=== PATIENT | female | born 1950 | race Caucasian/White ===

== ENCOUNTER 2019-12-28 11:19 | Outpatient (CLI) | payer MEDICARE, SELFPAY ==
--- NOTE | ~2019-12-28 | MR_ITS ---
EXAMINATION: MR brain/brain stem wo con DATE: 12/28/2019 15:17 INDICATION: Dementia TECHNIQUE: Magnetic resonance imaging (MRI) of the brain and brainstem was performed without intraven ous contrast. Sequences included sagittal and axial T1-weighted SE, axial diffusion-weighted FS SE, a xial T2*-weighted GRE, axial T2-weighted FLAIR, and axial T2-weighted FSE. Apparent diffusion coeffic ient (ADC) maps were created. COMPARISON: None. FINDINGS: There are no areas of restricted diffusion to suggest acute infarction. No intracranial hemorrhage or abnormal intracranial mass lesion. There are scattered areas of nonspecific increased T2-weighted si gnal intensity in the cerebral white matter, predominantly involving the deep and periventricular whi te matter. There are no intraparenchymal signal abnormalities seen on the other pulse sequences. Symm etric prominence of the sulci consistent with mild age-appropriate diffuse cerebral volume loss. The ventricles are symmetric and normal in size. There are no abnormal extra-axial fluid collections. Marcos w voids are seen in the cerebral arteries on the T2-weighted sequences consistent with their expected patency. Changes of left intraocular lens replacement. Mild mucosal thickening in the paranasal sinu ses with small mucous retention cyst at the inferior right maxillary sinus. IMPRESSION: 1. No acute intracranial process. 2. Age-related changes including mild diffuse volume loss and mild scattered periventricular predomin ant white matter T2 hyperintensity consistent with chronic small vessel ischemic disease. Reviewed, dictated and finalized at location A. IMPRESSION: 1. No acute intracranial process. 2. Age-related changes including mild diffuse volume loss and mild scattered pe riventricular predominant white matter T2 hyperintensity consistent with chroni c small vessel ischemic disease.
--- NOTE | 2019-12-28 12:00 | NEURO_ITS ---
TEST: ELECTROENCEPHALOGRAM DIAGNOSIS: DEMENTIA PATIENT NUMBER: [id number] EEG NUMBER: [id number] RECORDING DATE: 12/28/19 CLINICAL HISTORY: Patient reports that her family is telling her she is forgetting things all the time. CONDITION OF RECORDING: Awake, drowsy and sleep EEG DESCRIPTION: Basic resting occipital frequency consists of small amount of pooly organized low voltage 11-13hz alpha during brief periods of wakefulness mixed with low voltage beta. During drowsiness low voltage beta activity is seen diffusely mixed with waxing and waning posterior alpha rhythms. Bilateral symmetrical sleep activity is seen during sleep. Photic stimulation produced normal drive. Nonparoxysmal. Nonfocal. Nonlateralizing. IMPRESSION: Normal record MTDD
== END 2019-12-28 11:20 | disposition home or self-care (01) ==
PROVIDERS: Visit Provider Psychiatry & Neurology Neurology
DX: F03.90 Unspecified dementia, unspecified severity, without behavioral disturbance, psychotic disturbance, mood disturbance, and anxiety (principal); R93.0 Abnormal findings on diagnostic imaging of skull and head, not elsewhere classified
CPT/HCPCS: 70551; 95816

== ENCOUNTER 2020-02-07 03:08 | Outpatient (CLI) | payer MEDICARE, SELFPAY ==
[2020-02-07 17:56] LABS: SARS-CoV-2 RNA PCR Negative
== END 2020-02-07 03:09 | disposition home or self-care (01) ==
LOC: ANHCOVIDDT 03:09
PROVIDERS: PCP Internal Medicine; Visit Provider Internal Medicine Gastroenterology
DX: Z01.818 Encounter for other preprocedural examination (principal); Z11.59 Encounter for screening for other viral diseases
CPT/HCPCS: 87635; C9803; U0003

== ENCOUNTER 2020-02-09 02:19 | Day surgery (SDC) | payer MEDICARE, SELFPAY ==
[2020-02-03 14:37] VITALS: BMI 34.3
[2020-02-09 09:01] VITALS: BP 152/79; PULSE 58; RESP 18; TEMP 36; O2SAT 100
[2020-02-09 09:11] VITALS: BMI 34.2
[2020-02-09] MEDS: LACTATED RINGERS 1,000 ML 150 ML IV CONT (09:30)
[2020-02-09 09:31] LABS: Glucose Point of Care 166 (65-105)
--- NOTE | 2020-02-09 09:47 | WPDANESEPPF ---
Anes - Initial Pre Proc Eval Procedure: Operation Date: 02/09/20 09:30 Proposed Procedures p Esophagogastroduodenoscopy - Adam Cooney MD Date/Time: 02/09/20 09:47 Surgeon: Adam Cooney MD Pre Op Diagnosis: epigastric pain Patient Data Age: 69 Gender: F Height: 5 ft 3 in Weight: 87.5 kg Last Vital Signs Temp 96.8 F L 02/09/20 09:01 Pulse 58 L 02/09/20 09:01 Resp 18 02/09/20 09:01 BP 152/79 H 02/09/20 09:01 Pulse Ox 100 02/09/20 09:01 Allergies Allergy/AdvReac Type Severity Reaction Status Date / Time quinapril AdvReac Verified 02/03/20 14:33 Home Medications Medication Instructions Recorded Confirmed Type allopurinol 300 mg PO DAILY 02/03/20 02/03/20 History aspirin [Aspirin Low Dose] 81 mg PO DAILY 02/03/20 02/03/20 History atorvastatin 20 mg PO DAILY 02/03/20 02/03/20 History cholecalciferol (vitamin D3) 50 mcg PO DAILY 02/03/20 02/03/20 History donepezil 10 mg PO HS 02/03/20 02/09/20 History famotidine 40 mg PO DAILY 02/03/20 02/09/20 History levothyroxine 75 mcg PO DAILY 02/03/20 02/03/20 History lisinopril 10 mg PO DAILY 02/03/20 02/03/20 History metformin 500 mg PO BID 02/03/20 02/03/20 History omeprazole 40 mg PO DAILY 02/03/20 02/03/20 History vitamin B complex [B 1 tablet PO DAILY 02/03/20 02/03/20 History Complex-Vitamin B12] Laboratory Tests 02/09/20 09:28 POC Capillary Glucose 166 mg/dl H mg/dl (65-105) Patient hx anesthesia problems: none Family hx anesthesia problems: none PMFSH Past Medical History Medical History (Updated 02/09/20 @ 09:47 by Pete Pena MD) Dementia Diabetes GERD (gastroesophageal reflux disease) Hyperlipidemia Hypertension Hypothyroid Social History Social History Gender identity (if verbalized by the patient): Female Anes - Eval Final PreProcedure Day of Procedure 02/09/20 09:47 Patient weight: overweight Heart: regular rate and rhythm Lungs: clear to auscultation Airway: Mallampati scale class III Neurological: alert and oriented Last oral intake: >/= 8 hours ASA classification: III Emergent: no Anesthetic plan: proceed Anesthesia type and monitoring: general GIVS and standard monitoring Informed Consent: The patient's anesthetic plan and its attendant risks and benefits were discussed with the patient/family/POA. Questions were solicited and answers provided to the satisfaction of the patient/family/POA.
--- NOTE | 2020-02-09 09:49 | WPDGICN ---
Assessment and Plan Assessment and plan (1) Epigastric abdominal pain: Code(s): R10.13 - Epigastric pain Status: Acute Assessment and Plan: Epigastric pain suspicious for dyspepsia because of prior control with ranitidine. Patient now is on both an H2 ryan famotidine and a PPI omeprazole period with incomplete response to discomfort. Plan is to evaluate more thoroughly with an EGD. Hopefully 1 of these medications can be discontinued. Patient should be maintained on a bland diet for the immediate future. Further recommendations will be given after endoscopy. (2) Dementia: Code(s): F03.90 - Unspecified dementia without behavioral disturbance Status: Acute GI Consult Note Consult date/time: 02/09/20 09:49 HPI: Gali Gilman is a 69 year old female seen in evaluation at the request of Dr Irving Richardson. Patient has an underlying history of dementia. She is accompanied in history is given by her daughter. Patient has a several year history of epigastric pain. Initially well controlled with ranitidine. This medication was discontinued because of recall. She subsequently has been maintained on famotidine and omeprazole with incomplete response of pain. She continues to notice mid epigastric pain intermittently. This is not specifically related to dietary intake. Her daughter reports no bleeding. She had reports no weight loss. Review of Systems Review of Systems: All systems reviewed & are unremarkable except as noted in HPI and below PMFSH Past Medical History Medical History Dementia Diabetes GERD (gastroesophageal reflux disease) Hyperlipidemia Hypertension Hypothyroid Social History Social History Gender identity (if verbalized by the patient): Female Meds Home Medications and Allergies Home Medications Medication Instructions Recorded Confirmed Type allopurinol 300 mg PO DAILY 02/03/20 02/03/20 History aspirin [Aspirin Low Dose] 81 mg PO DAILY 02/03/20 02/03/20 History atorvastatin 20 mg PO DAILY 02/03/20 02/03/20 History cholecalciferol (vitamin D3) 50 mcg PO DAILY 02/03/20 02/03/20 History donepezil 10 mg PO HS 02/03/20 02/09/20 History famotidine 40 mg PO DAILY 02/03/20 02/09/20 History levothyroxine 75 mcg PO DAILY 02/03/20 02/03/20 History lisinopril 10 mg PO DAILY 02/03/20 02/03/20 History metformin 500 mg PO BID 02/03/20 02/03/20 History omeprazole 40 mg PO DAILY 02/03/20 02/03/20 History vitamin B complex [B 1 tablet PO DAILY 02/03/20 02/03/20 History Complex-Vitamin B12] Allergies Allergy/AdvReac Type Severity Reaction Status Date / Time quinapril AdvReac Verified 02/03/20 14:33 Vital Signs Vital Signs - 24 hr 02/09/20 09:01 Temperature 96.8 F L Pulse Rate 58 L Respiratory Rate 18 Blood Pressure 152/79 H Pulse Oximetry 100 Exam Narrative: Exam Narrative: Physical exam reveals the patient to be alert. Not well oriented. She is comfortable at rest vital signs are stable. HEENT exam unremarkable. Lungs are clear to auscultation and percussion. Heart is without murmur or extra sounds. Abdominal exam bowel sounds are present soft nontender with no hepatosplenomegaly. Digital external rectal exam unremarkable.
[2020-02-09 10:16] VITALS: BP 114/63; PULSE 67; RESP 18; O2SAT 97
[2020-02-09 10:26] VITALS: BP 117/72; PULSE 55; RESP 18; O2SAT 100
[2020-02-09 10:36] VITALS: BP 127/70; PULSE 56; RESP 18; O2SAT 98
== END 2020-02-09 10:45 | disposition home or self-care (01) ==
PROVIDERS: PCP Internal Medicine; Visit Provider Internal Medicine Gastroenterology
PROC: 0DJ08ZZ Inspection of Upper Intestinal Tract, Via Natural or Artificial Opening Endoscopic (ICD-10-PCS; CPT 43235; principal; 2020-02-09 09:30)
DX: R10.13 Epigastric pain (principal); K21.9 Gastro-esophageal reflux disease without esophagitis; F03.90 Unspecified dementia, unspecified severity, without behavioral disturbance, psychotic disturbance, mood disturbance, and anxiety; E11.9 Type 2 diabetes mellitus without complications; I10 Essential (primary) hypertension; E78.5 Hyperlipidemia, unspecified; E03.9 Hypothyroidism, unspecified; Z79.82 Long term (current) use of aspirin; Z79.84 Long term (current) use of oral hypoglycemic drugs
CPT/HCPCS: 43239; 87081; 87635; C9803; J2704; J7120; U0003

== ENCOUNTER 2020-02-23 10:39 | Outpatient (CLI) | payer MEDICARE, SELFPAY ==
--- NOTE | ~2020-02-23 | DEXA_ITS ---
Bone Density Report Name: Gali Gilman Age: 69 Sex: Female Ethnicity: White Date of : 1950 Indication: postmenopausal; height loss; Referring Provider: DOUG SHAW Study: Bone densitometry was performed. Exam Date: February 23, 2020 Accession number: [id number] Bone Density: Region BMD T-score Z-score Classification AP Spine (L2, L3, L4) 0.986 -0.8 1.4 Normal Femoral Neck (Left) 0.583 -2.4 -0.5 Osteopenia Total Hip (Left) 0.724 -1.8 -0.2 Osteopenia Total Hip Bilateral Avg 0.714 -1.9 -0.3 Osteopenia Femoral Neck (Right) 0.601 -2.2 -0.4 Osteopenia Total Hip (Right) 0.704 -2.0 -0.4 Osteopenia World Health Organization criteria for BMD impression classify patients as: Normal (T-score at or above -1.0), Osteopenia (T-score between -1.0 and -2.5), or Osteoporosis (T-score at or below -2.5). 10-year Fracture Risk(1): Major Osteoporotic Fracture 13% Hip Fracture 3.1% Reported Risk Factors: [place] (), Neck BMD=0.583, BMI=34.8 (1) FRAX(R) Version 3.08. Fracture probability calculated for an untreated patient. Fracture probability may be lower if the patient has received treatment. Clinical Information Provided by Patient: Has used the following medications: Vitamin D Patient maximum height was 63 Menopause Age: 48 No regular weight bearing exercise Onset of menses at age 12 Number of children 5 Impression: The patient has low bone mass, based on the Left Femoral Neck T-score. The patient has an estimated ten-year risk of hip fracture of 3.1% and an estimated ten-year risk of major fracture of 13%, based on the WHO FRAX algorithm. Discussion: BONE DENSITY IS LOW AT ONE OR MORE SKELETAL SITES. THE PATIENT'S BMD AND CLINICAL RISK FACTORS CONTRIBUTE TO THIS PATIENT'S INCREASED RISK OF FRACTURE. This patient's lowest T-score is low at one or more skeletal sites. It meets the World Health Organization's (WHO) criteria for ?low bone mass? (T-score between -1.0 and -2.5). The patient's 10-year risk of hip fracture as calculated by FRAX exceeds the threshold where pharmacological therapy is recommended by the National Osteoporosis Foundation (NOF). However, all treatment decisions require clinical judgment and consideration of individual patient factors, including patient preferences, comorbidities, previous drug use, risk factors not captured in the FRAX model (e.g., frailty, falls, vitamin D deficiency, increased bone turnover, interval significant decline in bone density) and possible under or overestimation of fracture risk by FRAX. The patient should follow a healthful lifestyle (good nutrition with adequate calcium and vitamin D, and appropriate weight-bearing exercise). Follow-Up: Consider a repeat BMD and Vertebral Fracture Assessment (VFA) exam in 2 years or sooner if medically necess
--- NOTE | ~2020-02-23 | MM_ITS ---
EXAMINATION: MM screening veronica BI w alejandrina HISTORY: Screening TECHNIQUE: Craniocaudal and mediolateral oblique 3-D tomosynthesis images were obtained and synthetic 2-D images were generated. CAD analysis was submitted and interpreted. COMPARISON: No prior mammogram is available for comparison at this institution. BREAST PARENCHYMAL COMPOSITION: There are scattered areas of fibroglandular density. FINDINGS: There is no evidence of suspicious mass, calcification, or architectural distortion to sugg est malignancy in either breast. There has been no suspicious interval change. IMPRESSION: 1. No mammographic evidence of malignancy. 2. Recommend routine screening mammography in one year. BI-RADS Category 1: Negative Reviewed, dictated and finalized at location A.
[2020-02-23 13:11] LABS: Vitamin D 25 Hydroxy 36.1 ng/mL
== END 2020-02-23 10:40 | disposition home or self-care (01) ==
PROVIDERS: PCP Internal Medicine; Visit Provider Obstetrics & Gynecology Gynecology
DX: Z12.31 Encounter for screening mammogram for malignant neoplasm of breast (principal); M85.88 Other specified disorders of bone density and structure, other site; Z78.0 Asymptomatic menopausal state; E55.9 Vitamin D deficiency, unspecified; M85.852 Other specified disorders of bone density and structure, left thigh; M85.851 Other specified disorders of bone density and structure, right thigh
CPT/HCPCS: 36415; 77063; 77067; 77080; 82306

== ENCOUNTER 2020-03-05 09:45 | Outpatient (CLI) | payer MEDICARE, SELFPAY ==
[2020-03-05 10:51] LABS: Basophils Absolute Auto 0.1 K/mm3 (0.0-0.1); Basophils Percent Auto 0.8 % (0.2-1.2); Eosinophils Absolute Auto 0.2 K/mm3 (0-0.3); Eosinophils Percent Auto 1.8 % (0-4.4); Hematocrit 37.8 % (37.0-47.0); Hemoglobin 12.6 g/dL (12.0-15.0); Immature Granulocyte Absolute 0.03 K/mm3 (0.00-0.031); Immature Granulocyte Percent A 0.3 % (0-0.5); Immature Reticulocyte Fraction 18.8 % (3.0-15.9); Lymphocytes Absolute Auto 3.56 K/mm3 (0.9-3.2); Lymphocytes Percent Auto 34.5 % (18.3-44.2); Mean Corpuscular HGB Conc 33.3 g/dl (32-36); Mean Corpuscular Hemoglobin 31.1 pg (26-34); Mean Corpuscular Volume 93.3 fl (80-100); Mean Platelet Volume 10.5 fl (7.4-10.4); Monocytes Absolute Auto 0.9 K/mm3 (0.1-0.6); Monocytes Percent Auto 8.4 % (2.6-8.5); Neutrophils Absolute Auto 5.6 K/mm3 (1.3-6.7); Neutrophils Percent Auto 54.2 % (45.5-73.1); Platelet Count Result 214 k/mm3 (150-375); Red Blood Count 4.05 M/mm3 (4.2-5.4); Red Cell Distribution Width 14.3 % (11.5-14.5); Reticulocyte Hemoglobin Conten 35.7 pg (28.2-35.7); Reticulocyte Percent 1.96 % (0.7-4.3); Reticulocytes Absolute 0.08 B/L (32.2-175.7); White Blood Count 10.3 K/mm3 (4.5-10.0)
[2020-03-05 11:07] LABS: Lactate Dehydrogenase 367 U/L (313-618)
[2020-03-05 11:20] LABS: Erythrocyte Sedimentation Rate 22 mm/hr (0-20)
[2020-03-05 11:56] LABS: Iron 88 ug/dL (37-170)
[2020-03-05 12:07] LABS: Percent Iron Saturation 26 % (20-50)
[2020-03-05 12:21] LABS: Folic Acid 9.8 ng/mL (2.76->20)
[2020-03-07 23:38] LABS: Albumin 3.7 g/dL (3.8-4.8); Alpha 1 Globulin 0.2 g/dL (0.2-0.3); Alpha 2 Globulin 0.7 g/dL (0.5-0.9); Beta 1 Globulin 0.4 g/dL (0.4-0.6); Protein, Total 6.4 g/dL (6.1-8.1)
[2020-03-10 14:53] LABS: BCR/abl Prior Result Not Given
[2020-03-10 15:38] LABS: BCR/abl P190 Not Detected; BCR/abl P210 Not Detected
[2020-03-10 15:39] LABS: BCR/abl P190 Chg YES; BCR/abl P210 Chg YES
== END 2020-03-05 09:46 | disposition home or self-care (01) ==
PROVIDERS: PCP Internal Medicine; Visit Provider Internal Medicine
DX: D72.820 Lymphocytosis (symptomatic) (principal); D72.821 Monocytosis (symptomatic); D64.9 Anemia, unspecified
CPT/HCPCS: 36415; 81206; 81207; 82728; 82746; 83540; 83550; 83615; 84155; 84165; 85025; 85046; 85652; 86038; 86334; 88184

== ENCOUNTER 2020-03-14 12:52 | Outpatient (CLI) | payer MEDICARE, SELFPAY ==
[2020-03-14 13:26] LABS: Basophils Absolute Auto 0.1 K/mm3 (0.0-0.1); Basophils Percent Auto 0.6 % (0.2-1.2); Eosinophils Absolute Auto 0.2 K/mm3 (0-0.3); Eosinophils Percent Auto 1.8 % (0-4.4); Hematocrit 37.6 % (37.0-47.0); Hemoglobin 12.5 g/dL (12.0-15.0); Immature Granulocyte Absolute 0.03 K/mm3 (0.00-0.031); Immature Granulocyte Percent A 0.3 % (0-0.5); Lymphocytes Absolute Auto 3.59 K/mm3 (0.9-3.2); Lymphocytes Percent Auto 33.1 % (18.3-44.2); Mean Corpuscular HGB Conc 33.2 g/dl (32-36); Mean Corpuscular Hemoglobin 30.9 pg (26-34); Mean Corpuscular Volume 93.1 fl (80-100); Mean Platelet Volume 10.4 fl (7.4-10.4); Monocytes Absolute Auto 0.9 K/mm3 (0.1-0.6); Monocytes Percent Auto 8.3 % (2.6-8.5); Neutrophils Absolute Auto 6.1 K/mm3 (1.3-6.7); Neutrophils Percent Auto 55.9 % (45.5-73.1); Platelet Count Result 224 k/mm3 (150-375); Red Blood Count 4.04 M/mm3 (4.2-5.4); Red Cell Distribution Width 14.4 % (11.5-14.5); White Blood Count 10.9 K/mm3 (4.5-10.0)
[2020-03-14 13:35] LABS: Hemoglobin A1C 6.9 % (<5.7)
[2020-03-14 13:38] LABS: Alanine Aminotransferase 23 U/L (4-35); Albumin Level 4.4 g/dL (3.5-5.1); Alkaline Phosphatase 87 U/L (38-126); Amylase 108 U/L (30-110); Anion Gap 7 mmol/L (8-16); Aspartate Amino Transferase 25 U/L (14-36); Bilirubin,Total 0.7 mg/dL (0.2-1.3); Blood Urea Nitrogen 23 mg/dL (7-17); Calcium 9.3 mg/dL (8.4-10.2); Carbon Dioxide 27 mmol/L (22-30); Chloride 102 mmol/L (98-107); Cholesterol 147 mg/dL (0-200); Estimated Glomerular Filt Rate 49; Glucose 147 mg/dL (65-105); HDL Direct 29 mg/dL; Lipase 442 U/L (23-300); Potassium 4.3 mmol/L (3.4-5.0); Sodium 136 mmol/L (137-145); Triglycerides 218 mg/dL (<150)
[2020-03-14 13:49] LABS: LDL Cholesterol Direct 80 mg/dL
== END 2020-03-14 12:53 | disposition home or self-care (01) ==
PROVIDERS: PCP Internal Medicine; Visit Provider Nurse Practitioner
DX: E11.9 Type 2 diabetes mellitus without complications (principal); I10 Essential (primary) hypertension; E78.5 Hyperlipidemia, unspecified; F02.80 Dementia in other diseases classified elsewhere, unspecified severity, without behavioral disturbance, psychotic disturbance, mood disturbance, and anxiety; E04.9 Nontoxic goiter, unspecified; E03.9 Hypothyroidism, unspecified; D51.9 Vitamin B12 deficiency anemia, unspecified; D72.829 Elevated white blood cell count, unspecified
CPT/HCPCS: 36415; 80053; 80061; 82150; 83036; 83690; 85025

== ENCOUNTER 2020-05-10 10:31 | Outpatient (CLI) | payer MEDICARE, SELFPAY ==
[2020-05-10 11:38] LABS: Hemoglobin A1C 6.4 % (<5.7)
[2020-05-10 12:16] LABS: Alanine Aminotransferase 17 U/L (4-35); Albumin Level 4.2 g/dL (3.5-5.1); Alkaline Phosphatase 73 U/L (38-126); Anion Gap 8 mmol/L (8-16); Aspartate Amino Transferase 28 U/L (14-36); Bilirubin,Total 0.7 mg/dL (0.2-1.3); Blood Urea Nitrogen 25 mg/dL (7-17); Calcium 9.5 mg/dL (8.4-10.2); Carbon Dioxide 26 mmol/L (22-30); Chloride 103 mmol/L (98-107); Cholesterol 121 mg/dL (0-200); Estimated Glomerular Filt Rate 49; Glucose 120 mg/dL (65-105); HDL Direct 25 mg/dL; Potassium 4.5 mmol/L (3.4-5.0); Sodium 137 mmol/L (137-145); Triglycerides 174 mg/dL (<150)
[2020-05-10 12:25] LABS: LDL Cholesterol Direct 65 mg/dL
[2020-05-10 13:48] LABS: Free T4 Free Thyroxine Reflex 0.52 ng/dL (0.78-2.19)
[2020-05-10 15:25] LABS: Add Urine Microscopic? YES; Appearance Urine Cloudy (Clear); Bacteria Urine 2+ /hpf; Bilirubin Urine Negative (Negative); Blood Urine 1+ (Negative); Color Urine Yellow (Yellow); Glucose Urine UA Negative (Negative); Ketones Urine Negative (Negative); Leukocyte Esterase Ur 3+ LEU/UL (Negative); Mucus Urine Rare /lpf; Nitrate Urine Negative (Negative); Protein Urine 1+ mg/dL (Negative); RBC Urine 21-50 /hpf (0-2); Specific Grav Ur 1.012 (1.001-1.035); Squamous Epithelial Cell Urine Few /hpf (Few); Urobilinogen Urine Negative mg/dL (<2.0); WBC Urine >75 /hpf
[2020-05-10 15:48] LABS: Creatinine Urine 101.4 mg/dL
[2020-05-10 15:53] LABS: MALB Creatinine Ratio 81.4 mg/g (0-30); Microalbumin Urine Random 82.5 mg/L (0-16.7)
== END 2020-05-10 10:32 | disposition home or self-care (01) ==
PROVIDERS: PCP Internal Medicine; Visit Provider Nurse Practitioner
DX: I10 Essential (primary) hypertension (principal); E11.9 Type 2 diabetes mellitus without complications; E78.5 Hyperlipidemia, unspecified; F02.80 Dementia in other diseases classified elsewhere, unspecified severity, without behavioral disturbance, psychotic disturbance, mood disturbance, and anxiety; E04.0 Nontoxic diffuse goiter; E03.9 Hypothyroidism, unspecified; D51.9 Vitamin B12 deficiency anemia, unspecified; D72.829 Elevated white blood cell count, unspecified; D72.820 Lymphocytosis (symptomatic); R10.13 Epigastric pain; K21.9 Gastro-esophageal reflux disease without esophagitis
CPT/HCPCS: 36415; 80053; 80061; 81001; 82043; 83036; 84439; 84443; 87077; 87086; 87088; 87186

== ENCOUNTER 2020-08-16 07:36 | Outpatient (CLI) | payer MEDICARE, SELFPAY ==
[2020-08-16 08:35] LABS: Basophils Absolute Auto 0.1 K/mm3 (0.0-0.1); Basophils Percent Auto 0.7 % (0.2-1.2); Eosinophils Absolute Auto 0.3 K/mm3 (0-0.3); Eosinophils Percent Auto 2.2 % (0-4.4); Hematocrit 37.2 % (37.0-47.0); Hemoglobin 12.3 g/dL (12.0-15.0); Immature Granulocyte Absolute 0.03 K/mm3 (0.00-0.031); Immature Granulocyte Percent A 0.3 % (0-0.5); Lymphocytes Absolute Auto 4.05 K/mm3 (0.9-3.2); Lymphocytes Percent Auto 36.2 % (18.3-44.2); Mean Corpuscular HGB Conc 33.1 g/dl (32-36); Mean Corpuscular Hemoglobin 31.4 pg (26-34); Mean Corpuscular Volume 94.9 fl (80-100); Mean Platelet Volume 10.3 fl (7.4-10.4); Monocytes Percent Auto 8.5 % (2.6-8.5); Neutrophils Absolute Auto 5.8 K/mm3 (1.3-6.7); Neutrophils Percent Auto 52.1 % (45.5-73.1); Platelet Count Result 197 k/mm3 (150-375); Red Blood Count 3.92 M/mm3 (4.2-5.4); Red Cell Distribution Width 14.4 % (11.5-14.5); White Blood Count 11.2 K/mm3 (4.5-10.0)
[2020-08-16 08:41] LABS: Add Urine Microscopic? YES; Appearance Urine Clear (Clear); Bacteria Urine Trace /hpf; Bilirubin Urine Negative (Negative); Blood Urine Negative (Negative); Color Urine Straw (Yellow); Glucose Urine UA Negative (Negative); Ketones Urine Negative (Negative); Leukocyte Esterase Ur Trace LEU/UL (Negative); Mucus Urine Rare /lpf; Nitrate Urine Negative (Negative); Protein Urine Negative (Negative); RBC Urine 0-2 /hpf (0-2); Specific Grav Ur 1.013 (1.001-1.035); Squamous Epithelial Cell Urine Rare /hpf (Few); Urobilinogen Urine Negative mg/dL (<2.0); WBC Urine 0-3 /hpf
[2020-08-16 08:45] LABS: Hemoglobin A1C 6.4 % (<5.7)
[2020-08-16 08:47] LABS: Alanine Aminotransferase 19 U/L (4-35); Alkaline Phosphatase 71 U/L (38-126); Anion Gap 6 mmol/L (8-16); Aspartate Amino Transferase 24 U/L (14-36); Bilirubin,Total 0.6 mg/dL (0.2-1.3); Blood Urea Nitrogen 20 mg/dL (7-17); Calcium 9.3 mg/dL (8.4-10.2); Carbon Dioxide 32 mmol/L (22-30); Chloride 104 mmol/L (98-107); Estimated Glomerular Filt Rate 49; Glucose 130 mg/dL (65-105); Potassium 4.4 mmol/L (3.4-5.0); Sodium 142 mmol/L (137-145)
[2020-08-16 09:17] LABS: Free T4 Free Thyroxine 1.03 ng/mL (0.78-2.19)
== END 2020-08-16 07:37 | disposition home or self-care (01) ==
PROVIDERS: PCP Internal Medicine; Visit Provider Nurse Practitioner
DX: F02.80 Dementia in other diseases classified elsewhere, unspecified severity, without behavioral disturbance, psychotic disturbance, mood disturbance, and anxiety (principal); E04.9 Nontoxic goiter, unspecified; E03.9 Hypothyroidism, unspecified; D51.9 Vitamin B12 deficiency anemia, unspecified; D72.829 Elevated white blood cell count, unspecified; K21.9 Gastro-esophageal reflux disease without esophagitis; I10 Essential (primary) hypertension; E11.9 Type 2 diabetes mellitus without complications; E78.5 Hyperlipidemia, unspecified
CPT/HCPCS: 36415; 80053; 81001; 83036; 84439; 84443; 85025

== ENCOUNTER 2020-09-18 08:08 | Outpatient (CLI) | payer MEDICARE, SELFPAY ==
--- NOTE | ~2020-09-18 | CT_ITS ---
EXAMINATION: CT abdomen pelvis w con EXAM DATE: 09/18/2020 08:44 INDICATION: Abd pain, acute, lymphocystosis. TECHNIQUE: Spiral CT of the abdomen and pelvis was performed following intravenous injection of 100 m L Omnipaque 350. Axial, coronal and sagittal images were reviewed. The dose-length product (DLP) fo r this examination was 965.71 mGy-cm. The exposure was tailored according to patient size (auto mA e xposure control), and iterative reconstruction (ASIR) was used as additional dose reduction technique . There is no prior study for comparison. FINDINGS: There is a 2.2 cm left adrenal gland nodule, statistically most likely adenoma but indeterm inate based on imaging. The liver, spleen, adrenal glands and pancreas are otherwise unremarkable. There are cholecystectomy clips. Portal and splenic veins are patent. Kidneys enhance symmetrically . There is no hydronephrosis. There are lobular renal contours bilaterally but no definite focal mas s. The uterus is unremarkable. The bladder is unremarkable. There is no retroperitoneal or pelvic lymphadenopathy. There is mild scattered arteriosclerotic disease. The appendix is not positively visualized. There is no pericecal inflammatory change to suggest appe ndicitis. In the 1st portion of the duodenum there is polyp-like soft tissue density projecting int o the lumen, measuring 1.2 cm. Finding is been indicated on axial image #73. There is expected amount of colonic stool. No free intraperitoneal gas. The heart is normal in size. There are no perica rdial or pleural effusions. The lung bases are unremarkable. The bones are unremarkable. IMPRESSION: 1. Density suspected to be polyp projecting into the lumen of the 1st portion duodenum, just above t he level of ampulla insertion. Recommend GI consult for any further management. 2. Left adrenal nodule, indeterminate. Consider CT with and without contrast adrenal protocol, or MR I abdomen without contrast. 3. No acute intra-abdominal findings. Reviewed, dictated and finalized at location B. LE TAPER IMPRESSION: 1. Density suspected to be polyp projecting into the lumen of the 1st portion duodenum, just above the level of ampulla insertion. Recommend GI consult for a ny further management. 2. Left adrenal nodule, indeterminate. Consider CT with and without contrast a drenal protocol, or MRI abdomen without contrast. 3. No acute intra-abdominal findings.
[2020-09-18 08:32] LABS: Estimated Glomerular Filt Rate 49
== END 2020-09-18 08:09 | disposition home or self-care (01) ==
PROVIDERS: PCP Internal Medicine; Visit Provider Internal Medicine
DX: D72.820 Lymphocytosis (symptomatic) (principal); R10.13 Epigastric pain; N83.8 Other noninflammatory disorders of ovary, fallopian tube and broad ligament
CPT/HCPCS: 74177; Q9967

== ENCOUNTER 2020-11-18 15:09 | Emergency (ER) | payer MEDICARE, SELFPAY ==
--- NOTE | ~2020-11-18 | CT_ITS ---
EXAMINATION: CT abdomen pelvis w con DATE: 11/18/2020 16:45 INDICATION: Generalized abdominal pain. TECHNIQUE: Computed tomography (CT) of the abdomen and pelvis was performed with 100 mL Omnipaque 350 intravenous contrast. Automated exposure control and iterative reconstruction technique were employe d. The dose-length product was 1317.19 mGy-cm. COMPARISON: CT abdomen and pelvis 09/18/2020 FINDINGS: The visualized portions of the lung bases demonstrate mild atelectasis. No pleural effusion . The heart size is normal. There are coronary artery calcifications. No pericardial effusion. The li milagros and spleen are normal. There are changes of cholecystectomy. The pancreas and right adrenal gland are normal. There is a 2.0 cm mass in left adrenal gland measuring soft tissue attenuation. There is cortical thinning of the kidneys. There are cysts in left kidney measuring up to 10 mm. There are no dilated loops of bowel. The appendix is not visualized. There are no pathologically enlarged lymph n odes. There is no free intraperitoneal fluid. There is severe lumbar spondylosis. IMPRESSION: 1. 2.0 cm left adrenal mass. In the absence of known malignancy, this finding is likely an adenoma. Reviewed, dictated and finalized at location A. IMPRESSION: 1. 2.0 cm left adrenal mass. In the absence of known malignancy, this finding i s likely an adenoma.
--- NOTE | ~2020-11-18 | CT_ITS ---
EXAMINATION: CT brain wo con DATE: 11/18/2020 16:40 INDICATION: Syncope. TECHNIQUE: Computed tomography (CT) of the head was performed without intravenous contrast. The mA wa s adjusted according to patient size. Iterative reconstruction technique was employed. The dose-lengt h product was 681.00 mGy-cm. COMPARISON: Brain MRI 12/28/2019 FINDINGS: There are scattered areas of low attenuation in the cerebral white matter, which is within normal limits for the patient's age. There is no intracranial hemorrhage, acute infarction, or abnorm al intracranial mass lesion. The ventricles are normal in size. The paranasal sinuses are clear. The mastoid air cells are normal. IMPRESSION: 1. Normal aging brain. Reviewed, dictated and finalized at location A. IMPRESSION: 1. Normal aging brain.
[2020-11-18 15:14] VITALS: BP 147/77; PULSE 68; RESP 14; TEMP 36.1; O2SAT 99
--- NOTE | 2020-11-18 15:36 | ECG_ITS ---
Measurements Intervals [place] Rate: 0 P: AL: 0 QRS: QRSD: 0 T: QT: 0 QTc: 0 Interpretive Statements SINUS RHYTHM LOW VOLTAGE- PRECORDIAL LEADS BORDERLINE R WAVE PROGRESSION, ANTERIOR LEADS CONSIDER INFERIOR INFARCT, AGE INDETERMINATE BORDERLINE T WAVE ABNORMALITY- ANT/HIGH LAT LEADS BASELINE ARTIFACT- I, II, III, AVR, AVL,A VF, V1, V3-V6 ABNORMAL ECG Electronically Signed On 11-18-2020 16:40:16 CDT by Maxwell Alfredo D.O.
[2020-11-18 15:58] LABS: Basophils Absolute Auto 0.1 K/mm3 (0.0-0.1); Basophils Percent Auto 0.7 % (0.2-1.2); Eosinophils Absolute Auto 0.1 K/mm3 (0-0.3); Eosinophils Percent Auto 1.3 % (0-4.4); Hematocrit 37.7 % (37.0-47.0); Hemoglobin 12.3 g/dL (12.0-15.0); Immature Granulocyte Absolute 0.03 K/mm3 (0.00-0.031); Immature Granulocyte Percent A 0.3 % (0-0.5); Lymphocytes Absolute Auto 2.61 K/mm3 (0.9-3.2); Lymphocytes Percent Auto 25.4 % (18.3-44.2); Mean Corpuscular HGB Conc 32.6 g/dl (32-36); Mean Corpuscular Hemoglobin 30.4 pg (26-34); Mean Corpuscular Volume 93.3 fl (80-100); Mean Platelet Volume 10.4 fl (7.4-10.4); Monocytes Absolute Auto 0.9 K/mm3 (0.1-0.6); Monocytes Percent Auto 8.4 % (2.6-8.5); Neutrophils Absolute Auto 6.6 K/mm3 (1.3-6.7); Neutrophils Percent Auto 63.9 % (45.5-73.1); Platelet Count Result 201 k/mm3 (150-375); Red Blood Count 4.04 M/mm3 (4.2-5.4); Red Cell Distribution Width 13.8 % (11.5-14.5); White Blood Count 10.3 K/mm3 (4.5-10.0)
[2020-11-18 16:07] LABS: Anion Gap 8 mmol/L (8-16); Blood Urea Nitrogen 21 mg/dL (7-17); Calcium 9.3 mg/dL (8.4-10.2); Carbon Dioxide 26 mmol/L (22-30); Chloride 104 mmol/L (98-107); Estimated CRCL calculation 39 ml/min; Estimated Glomerular Filt Rate 44; Glucose 264 mg/dL (65-105); Potassium 3.9 mmol/L (3.4-5.0); Sodium 138 mmol/L (137-145)
--- NOTE | 2020-11-18 16:07 | ED.GENADULT ---
HPI - General Adult General Chief complaint: Syncope Stated complaint: syncope, fall Time Seen by Provider: 11/18/20 15:39 Source: patient, family and RN notes reviewed Limitations: dementia History of Present Illness HPI narrative: Patient 70 years old white female was standing in a line in a grocery store with her daughter suddenly fell down to her knees on the floor. The daughter was able to pick her up off the floor, the daughter denies any loss of consciousness or unresponsiveness. Patient does not recall the event. History of dementia. Currently patient complaining of abdominal pain which is chronic for long time but she believes the pain is worse today. Patient denies any fever, chills, nausea, vomiting, diarrhea, constipation, urinary symptoms, chest pain, shortness of breath, headache, head injury, neck injury or back injury. History of diabetes, hypertension and dementia. Related Data Home Medications Medication Instructions Recorded Confirmed allopurinol 300 mg PO DAILY 02/03/20 02/03/20 aspirin [Aspirin Low Dose] 81 mg PO DAILY 02/03/20 02/03/20 atorvastatin 20 mg PO DAILY 02/03/20 02/03/20 cholecalciferol (vitamin D3) 50 mcg PO DAILY 02/03/20 02/03/20 donepezil 10 mg PO HS 02/03/20 02/09/20 lisinopril 10 mg PO DAILY 02/03/20 02/03/20 omeprazole 40 mg PO DAILY 02/03/20 02/03/20 vitamin B complex [B 1 tablet PO DAILY 02/03/20 02/03/20 Complex-Vitamin B12] ascorbic acid (vitamin C) 500 mg PO DAILY 11/18/20 sitagliptin [Januvia] mg 11/18/20 Allergies Allergy/AdvReac Type Severity Reaction Status Date / Time quinapril AdvReac Confusion Verified 11/18/20 16:32 Review of Systems Review of Systems: Narrative: CONSTITUTIONAL: Denies fever, chills, or sweats. EYES: Denies visual changes, redness, or discharge. ENT: Denies rhinorrhea, congestion, sore throat, or otalgia. CARDIOVASCULAR: Denies chest pain, palpitations, or edema. RESPIRATORY: Denies cough or dyspnea. GASTROINTESTINAL: Denies abdominal pain, nausea, vomiting, or diarrhea. GENITOURINARY: Denies dysuria or hematuria. SKIN: Denies rash or itching. MUSCULOSKELETAL: Denies back pain, joint pain, or myalgia. NEUROLOGIC: Denies headache, numbness, or weakness. PSYCHIATRIC: Denies anxiety or depression. All systems reviewed & are unremarkable except as noted in HPI and below ROS unobtainable: Yes unobtainable due to mental status PMFSH Past Medical History Medical History (Updated 11/18/20 @ 17:19 by Betty Marcus MD) Dementia Diabetes GERD (gastroesophageal reflux disease) Hyperlipidemia Hypertension Hypothyroid Social History Social History Gender identity (if verbalized by the patient): Female Exam Narrative: Exam Narrative: General appearance: Well-developed, well-nourished Skin: Normal color Head: Normocephalic, nontraumatic Eyes: Clear conjunctiva ENT: Oropharynx normal, ears normal, nose normal Neck: Supple, nontender Chest and respiratory: Airway patent, no respiratory distress, no accessory muscle use Heart: Regular rate/rhythm Abdomen: Soft, diffuse tenderness, distended, quiet bowel sounds, no guarding or rebound Vascular: Normal peripheral pulses, normal capillary refill. Musculoskeletal: Normal range of motion, nontender back Neurologic: Alert and oriented ?3, [employer] NURSING DIRECTOR is normal as tested, no gross motor deficit Course Course Emergency Course: Stable Reevaluation(s) Reevaluation #1: Patient feeling okay, denying any symptoms, I agree with the discharge home. The patient and her daughter were notified about the findings of the CAT scan. A copy of the CAT scan report was given to the daughter prior
[2020-11-18 16:32] VITALS: PULSE 70
[2020-11-18 16:59] VITALS: BP 182/102; BP 182/70; PULSE 72; PULSE 83
[2020-11-18 17:00] VITALS: BP 164/84; PULSE 73
[2020-11-18 17:09] VITALS: BP 164/84; PULSE 67; RESP 18; O2SAT 99
[2020-11-18 17:17] LABS: Add Urine Microscopic? YES; Appearance Urine Clear (Clear); Bilirubin Urine Negative (Negative); Blood Urine Negative (Negative); Color Urine Straw (Yellow); Glucose Urine UA Negative (Negative); Ketones Urine Negative (Negative); Leukocyte Esterase Ur Negative LEU/UL (Negative); Nitrate Urine Negative (Negative); Protein Urine Negative (Negative); RBC Urine 0-2 /hpf (0-2); Specific Grav Ur 1.026 (1.001-1.035); Squamous Epithelial Cell Urine Occasional /hpf (Few); Urobilinogen Urine Negative mg/dL (<2.0); WBC Urine 0-3 /hpf
[2020-11-18 17:36] VITALS: BP 137/79; PULSE 66; RESP 19; O2SAT 99
[2020-11-18 17:36] LABS: Alanine Aminotransferase 15 U/L (4-35); Alkaline Phosphatase 73 U/L (38-126); Aspartate Amino Transferase 20 U/L (14-36); Bilirubin,Total 0.3 mg/dL (0.2-1.3); Lipase 321 U/L (23-300)
== END 2020-11-18 17:59 | disposition home or self-care (01) ==
PROVIDERS: Emergency Provider Emergency Medicine; PCP Internal Medicine
DX: I95.1 Orthostatic hypotension (principal); E86.0 Dehydration; E27.8 Other specified disorders of adrenal gland; I10 Essential (primary) hypertension; F03.90 Unspecified dementia, unspecified severity, without behavioral disturbance, psychotic disturbance, mood disturbance, and anxiety; E11.9 Type 2 diabetes mellitus without complications; K21.9 Gastro-esophageal reflux disease without esophagitis; E03.9 Hypothyroidism, unspecified; Z79.84 Long term (current) use of oral hypoglycemic drugs; Z79.82 Long term (current) use of aspirin; R94.31 Abnormal electrocardiogram [ECG] [EKG]
CPT/HCPCS: 36415; 70450; 74177; 80048; 80076; 81001; 83690; 85025; 93005; 99284; Q9967

== ENCOUNTER 2021-01-03 10:32 | Outpatient (CLI) | payer MEDICARE, SELFPAY ==
[2021-01-07 12:27] LABS: Metanephrine, Total Urine 219 mcg/24 h (224-832); Metanephrine, Urine 56 mcg/24 h (90-315); Normetanephrine, Urine 163 mcg/24 h (122-676)
[2021-01-11 17:26] LABS: Calculated Total (E+NE) 17 mcg/24 h (26-121); Dopamine, 24hr Urine 46 mcg/24 h (52-480); Norepinephrine, 24hr Urine 17 mcg/24 h (15-100)
== END 2021-01-03 10:33 | disposition home or self-care (01) ==
LOC: ANHLAB 10:35
PROVIDERS: PCP Internal Medicine; Visit Provider Nurse Practitioner
DX: E11.22 Type 2 diabetes mellitus with diabetic chronic kidney disease (principal); E78.5 Hyperlipidemia, unspecified; E04.9 Nontoxic goiter, unspecified; E27.9 Disorder of adrenal gland, unspecified; R19.7 Diarrhea, unspecified; D51.9 Vitamin B12 deficiency anemia, unspecified; I12.9 Hypertensive chronic kidney disease with stage 1 through stage 4 chronic kidney disease, or unspecified chronic kidney disease; F02.80 Dementia in other diseases classified elsewhere, unspecified severity, without behavioral disturbance, psychotic disturbance, mood disturbance, and anxiety; E03.9 Hypothyroidism, unspecified; D72.829 Elevated white blood cell count, unspecified; K21.9 Gastro-esophageal reflux disease without esophagitis; N18.30 Chronic kidney disease, stage 3 unspecified
CPT/HCPCS: 82384; 82530; 83835

== ENCOUNTER 2021-02-13 08:56 | Outpatient (CLI) | payer MEDICARE, SELFPAY ==
[2021-02-13 09:37] LABS: Basophils Absolute Auto 0.1 K/mm3 (0.0-0.1); Basophils Percent Auto 0.8 % (0.2-1.2); Eosinophils Absolute Auto 0.1 K/mm3 (0-0.3); Eosinophils Percent Auto 1.4 % (0-4.4); Hematocrit 39.7 % (37.0-47.0); Hemoglobin 13.1 g/dL (12.0-15.0); Immature Granulocyte Absolute 0.04 K/mm3 (0.00-0.031); Immature Granulocyte Percent A 0.4 % (0-0.5); Lymphocytes Absolute Auto 3.62 K/mm3 (0.9-3.2); Lymphocytes Percent Auto 36.6 % (18.3-44.2); Mean Corpuscular Hemoglobin 30.9 pg (26-34); Mean Corpuscular Volume 93.6 fl (80-100); Monocytes Absolute Auto 0.9 K/mm3 (0.1-0.6); Monocytes Percent Auto 9.3 % (2.6-8.5); Neutrophils Absolute Auto 5.1 K/mm3 (1.3-6.7); Neutrophils Percent Auto 51.5 % (45.5-73.1); Platelet Count Result 206 k/mm3 (150-375); Red Blood Count 4.24 M/mm3 (4.2-5.4); Red Cell Distribution Width 14.6 % (11.5-14.5); White Blood Count 9.9 K/mm3 (4.5-10.0)
[2021-02-13 10:00] LABS: Hemoglobin A1C 7.9 % (<5.7)
[2021-02-13 10:05] LABS: Alanine Aminotransferase 19 U/L (4-35); Albumin Level 4.1 g/dL (3.5-5.1); Alkaline Phosphatase 78 U/L (38-126); Anion Gap 11 mmol/L (8-16); Aspartate Amino Transferase 21 U/L (14-36); Bilirubin,Total 0.7 mg/dL (0.2-1.3); Blood Urea Nitrogen 21 mg/dL (7-17); Calcium 9.4 mg/dL (8.4-10.2); Carbon Dioxide 25 mmol/L (22-30); Chloride 98 mmol/L (98-107); Cholesterol 136 mg/dL (0-200); Estimated Glomerular Filt Rate 44; Glucose 186 mg/dL (65-110); HDL Direct 34 mg/dL; Potassium 4.5 mmol/L (3.4-5.0); Sodium 134 mmol/L (137-145); Triglycerides 185 mg/dL (<150)
[2021-02-13 10:16] LABS: LDL Cholesterol Direct 65 mg/dL
[2021-02-13 10:30] LABS: Free T4 Free Thyroxine 0.68 ng/mL (0.78-2.19)
[2021-02-13 10:34] LABS: Phosphorus 3.6 mg/dL (2.5-4.5)
== END 2021-02-13 08:57 | disposition home or self-care (01) ==
PROVIDERS: PCP Internal Medicine; Visit Provider Nurse Practitioner Family
DX: E27.8 Other specified disorders of adrenal gland (principal); I12.9 Hypertensive chronic kidney disease with stage 1 through stage 4 chronic kidney disease, or unspecified chronic kidney disease; N18.30 Chronic kidney disease, stage 3 unspecified; K21.9 Gastro-esophageal reflux disease without esophagitis; D72.829 Elevated white blood cell count, unspecified; R19.7 Diarrhea, unspecified; E03.9 Hypothyroidism, unspecified; E04.9 Nontoxic goiter, unspecified; F02.80 Dementia in other diseases classified elsewhere, unspecified severity, without behavioral disturbance, psychotic disturbance, mood disturbance, and anxiety; E78.5 Hyperlipidemia, unspecified; E11.9 Type 2 diabetes mellitus without complications; D51.9 Vitamin B12 deficiency anemia, unspecified
CPT/HCPCS: 36415; 80053; 80061; 83036; 84100; 84439; 84443; 85025

== ENCOUNTER 2021-04-02 15:30 | Outpatient (CLI) | payer MEDICARE, SELFPAY ==
--- NOTE | ~2021-04-02 | MM_ITS ---
EXAMINATION: MM screening veronica BI w alejandrina HISTORY: Screening mammogram, family history of breast cancer in her sister. TECHNIQUE: Craniocaudal and mediolateral oblique 3-D tomosynthesis images were obtained and synthetic 2-D images were generated. CAD analysis was submitted and interpreted. COMPARISON: 02/23/2020 BREAST PARENCHYMAL COMPOSITION: There are scattered areas of fibroglandular density. FINDINGS: Scattered benign-appearing calcifications are present. There is no evidence of suspicious m ass, calcification, or architectural distortion to suggest malignancy in either breast. There has bee n no suspicious interval change. IMPRESSION: 1. No mammographic evidence of malignancy. 2. Recommend routine screening mammography in one year. BI-RADS Category 2: Benign finding(s). Reviewed, dictated and finalized at location A.
== END 2021-04-02 15:31 | disposition home or self-care (01) ==
LOC: ANHIMG 15:32
PROVIDERS: PCP Internal Medicine; Visit Provider Obstetrics & Gynecology Gynecology
DX: Z12.31 Encounter for screening mammogram for malignant neoplasm of breast (principal)
CPT/HCPCS: 77063; 77067

== ENCOUNTER 2021-06-05 09:07 | Outpatient (CLI) | payer MEDICARE, SELFPAY ==
[2021-06-05 09:52] LABS: Add Urine Microscopic? YES; Amorphous Sediment Urine Few; Appearance Urine Cloudy (Clear); Bacteria Urine 2+ /hpf; Bilirubin Urine Negative (Negative); Blood Urine 1+ (Negative); Glucose Urine UA Negative (Negative); Ketones Urine Negative (Negative); Leukocyte Esterase Ur 3+ LEU/UL (Negative); Mucus Urine Rare /lpf; Nitrate Urine Negative (Negative); Protein Urine Negative (Negative); Specific Grav Ur 1.008 (1.001-1.035); Squamous Epithelial Cell Urine Many /hpf (Few); Urobilinogen Urine Negative mg/dL (<2.0); WBC Urine 21-30 /hpf
[2021-06-05 09:53] LABS: Color Urine Colorless (Yellow)
[2021-06-05 10:03] LABS: Alanine Aminotransferase 20 U/L (4-35); Albumin Level 4.3 g/dL (3.5-5.1); Alkaline Phosphatase 76 U/L (38-126); Anion Gap 9 mmol/L (8-16); Aspartate Amino Transferase 23 U/L (14-36); Bilirubin,Total 0.7 mg/dL (0.2-1.3); Blood Urea Nitrogen 22 mg/dL (7-17); Calcium 9.6 mg/dL (8.4-10.2); Carbon Dioxide 26 mmol/L (22-30); Chloride 101 mmol/L (98-107); Cholesterol 153 mg/dL (0-200); Estimated Glomerular Filt Rate 49; Glucose 197 mg/dL (65-110); HDL Direct 31 mg/dL; Potassium 4.8 mmol/L (3.4-5.0); Sodium 136 mmol/L (137-145); Triglycerides 269 mg/dL (<150)
[2021-06-05 10:14] LABS: LDL Cholesterol Direct 74 mg/dL
[2021-06-05 10:21] LABS: Creatinine Urine 57.4 mg/dL
[2021-06-05 10:26] LABS: MALB Creatinine Ratio 21.3 mg/g (0-30); Microalbumin Urine Random 12.2 mg/L (0-16.7)
== END 2021-06-05 09:08 | disposition home or self-care (01) ==
PROVIDERS: PCP Internal Medicine; Visit Provider Nurse Practitioner
DX: I10 Essential (primary) hypertension (principal); E27.9 Disorder of adrenal gland, unspecified; N18.30 Chronic kidney disease, stage 3 unspecified; D72.829 Elevated white blood cell count, unspecified; K21.9 Gastro-esophageal reflux disease without esophagitis; E03.9 Hypothyroidism, unspecified; E04.9 Nontoxic goiter, unspecified; F02.80 Dementia in other diseases classified elsewhere, unspecified severity, without behavioral disturbance, psychotic disturbance, mood disturbance, and anxiety; E78.5 Hyperlipidemia, unspecified; E11.9 Type 2 diabetes mellitus without complications; D51.9 Vitamin B12 deficiency anemia, unspecified
CPT/HCPCS: 36415; 80053; 80061; 81001; 82043; 83036; 87086; 87088

== ENCOUNTER 2021-09-09 09:43 | Outpatient (CLI) | payer MEDICARE, SELFPAY ==
[2021-09-09 10:28] LABS: Add Urine Microscopic? YES; Appearance Urine Clear (Clear); Bilirubin Urine Negative (Negative); Blood Urine Negative (Negative); Color Urine Straw (Yellow); Glucose Urine UA Negative (Negative); Ketones Urine Negative (Negative); Leukocyte Esterase Ur Trace LEU/UL (Negative); Mucus Urine Rare /lpf; Nitrate Urine Negative (Negative); Protein Urine Negative (Negative); Specific Grav Ur 1.008 (1.001-1.035); Squamous Epithelial Cell Urine Rare /hpf (Few); Urobilinogen Urine Negative mg/dL (<2.0); WBC Urine 0-3 /hpf
[2021-09-09 10:37] LABS: Anion Gap 7 mmol/L (8-16); Blood Urea Nitrogen 28 mg/dL (7-17); Calcium 9.3 mg/dL (8.4-10.2); Carbon Dioxide 31 mmol/L (22-30); Chloride 99 mmol/L (98-107); Cholesterol 169 mg/dL (0-200); Estimated Glomerular Filt Rate 37; Glucose 144 mg/dL (65-110); HDL Direct 40 mg/dL; Potassium 4.5 mmol/L (3.4-5.0); Sodium 137 mmol/L (137-145); Triglycerides 201 mg/dL (<150)
[2021-09-09 10:38] LABS: Hemoglobin A1C 6.8 % (<5.7)
[2021-09-09 10:48] LABS: LDL Cholesterol Direct 76 mg/dL
[2021-09-09 10:51] LABS: Creatinine Urine 36.6 mg/dL
[2021-09-09 10:56] LABS: MALB Creatinine Ratio 450.5 mg/g (0-30); Microalbumin Urine Random 164.9 mg/L (0-16.7)
== END 2021-09-09 09:44 | disposition home or self-care (01) ==
PROVIDERS: PCP Internal Medicine; Visit Provider Nurse Practitioner Family
DX: I10 Essential (primary) hypertension (principal); E11.9 Type 2 diabetes mellitus without complications; E78.5 Hyperlipidemia, unspecified; F02.80 Dementia in other diseases classified elsewhere, unspecified severity, without behavioral disturbance, psychotic disturbance, mood disturbance, and anxiety; E04.9 Nontoxic goiter, unspecified; E03.9 Hypothyroidism, unspecified; D51.9 Vitamin B12 deficiency anemia, unspecified; D72.829 Elevated white blood cell count, unspecified; K21.9 Gastro-esophageal reflux disease without esophagitis; N18.30 Chronic kidney disease, stage 3 unspecified; E27.9 Disorder of adrenal gland, unspecified
CPT/HCPCS: 36415; 80048; 80061; 81001; 82043; 83036

== ENCOUNTER 2021-12-05 09:48 | Outpatient (CLI) | payer MEDICARE, SELFPAY ==
[2021-12-05 11:01] LABS: Add Urine Microscopic? YES; Appearance Urine Clear (Clear); Bilirubin Urine Negative (Negative); Blood Urine Negative (Negative); Color Urine Yellow (Yellow); Glucose Urine UA Negative (Negative); Ketones Urine Negative (Negative); Leukocyte Esterase Ur Trace LEU/UL (Negative); Nitrate Urine Negative (Negative); Protein Urine Negative (Negative); Urobilinogen Urine 0.2 mg/dL (<2.0)
[2021-12-05 11:05] LABS: Bacteria Urine Trace /hpf; RBC Urine 0-2 /hpf (0-2); Squamous Epithelial Cell Urine Rare /hpf (Few); WBC Urine 0-3 /hpf
[2021-12-05 11:21] LABS: Alanine Aminotransferase 18 U/L (6-35); Albumin Level 4.6 g/dL (3.5-5.1); Alkaline Phosphatase 80 U/L (38-126); Anion Gap 7 mmol/L (8-16); Aspartate Amino Transferase 23 U/L (14-36); Bilirubin,Total 0.8 mg/dL (0.2-1.3); Blood Urea Nitrogen 25 mg/dL (7-17); Calcium 9.3 mg/dL (8.4-10.2); Carbon Dioxide 30 mmol/L (22-30); Chloride 101 mmol/L (98-107); Cholesterol 172 mg/dL (0-200); Estimated Glomerular Filt Rate 37; Glucose 139 mg/dL (65-110); HDL Direct 40 mg/dL; Potassium 4.4 mmol/L (3.4-5.0); Sodium 138 mmol/L (137-145); Triglycerides 214 mg/dL (<150)
[2021-12-05 11:32] LABS: LDL Cholesterol Direct 75 mg/dL
[2021-12-05 11:35] LABS: Creatinine Urine 55.9 mg/dL
[2021-12-05 12:00] LABS: Free T4 Free Thyroxine 0.77 ng/mL (0.78-2.19)
[2021-12-05 12:05] LABS: MALB Creatinine Ratio < 10.7 mg/g (0-30); Microalbumin Urine Random < 6.0 mg/L (0-16.7)
[2021-12-05 12:28] LABS: Hemoglobin A1C 6.3 % (<5.7)
== END 2021-12-05 09:49 | disposition home or self-care (01) ==
PROVIDERS: PCP Internal Medicine; Visit Provider Internal Medicine
DX: I12.9 Hypertensive chronic kidney disease with stage 1 through stage 4 chronic kidney disease, or unspecified chronic kidney disease (principal); R05.9 Cough, unspecified; N18.30 Chronic kidney disease, stage 3 unspecified; E11.22 Type 2 diabetes mellitus with diabetic chronic kidney disease; E27.9 Disorder of adrenal gland, unspecified; K21.9 Gastro-esophageal reflux disease without esophagitis; D72.829 Elevated white blood cell count, unspecified; E04.9 Nontoxic goiter, unspecified; F02.80 Dementia in other diseases classified elsewhere, unspecified severity, without behavioral disturbance, psychotic disturbance, mood disturbance, and anxiety; E78.5 Hyperlipidemia, unspecified; E03.9 Hypothyroidism, unspecified
CPT/HCPCS: 36415; 80053; 80061; 81001; 82043; 83036; 84439; 84443

== ENCOUNTER 2022-03-28 08:54 | Outpatient (CLI) | payer MEDICARE, SELFPAY ==
--- NOTE | ~2022-03-28 | DEXA_ITS ---
Bone Density Report Name: MUSTAPHA GLYNN Age: 71 Sex: Female Ethnicity: White Date of : 1950 Indication: osteopenia; height loss; postmenopausal Referring Provider: DOUG SHAW Study: Bone densitometry was performed. Exam Date: March 28, 2022 Accession number: [id number] Bone Density: Region BMD T-score Z-score Classification AP Spine(L2, L3, L4) 0.980 -0.9 1.5 Normal Femoral Neck (Left) 0.593 -2.3 -0.3 Osteopenia Total Hip (Left) 0.783 -1.3 0.4 Osteopenia Femoral Neck (Right) 0.539 -2.8 -0.8 Osteoporosis Total Hip (Right) 0.662 -2.3 -0.6 Osteopenia Total Hip Mean 0.722 -1.8 -0.1 Osteopenia World Health Organization criteria for BMD impression classify patients as: Normal (T-score at or above -1.0), Osteopenia (T-score between -1.0 and -2.5), or Osteoporosis (T-score at or below -2.5). 10-year Fracture Risk: FRAX not reported because: Some T-score for Spine Total or Hip Total or Femoral Neck at or below -2.5 Previous Exams: Region Exam Age BMD T-score BMD Change BMD Change Date g/cm2 vs Baseline vs Previous AP Spine (L2-L4) 03/28/2022 71 0.980 -0.9 -0.006 (-0.6%) -0.006 (-0.6%) 02/23/2020 69 0.986 -0.8 Total Hip(Left) 03/28/2022 71 0.783 -1.3 0.059 (8.1%)* 0.059 (8.1%)* 02/23/2020 69 0.724 -1.8 Total Hip(Right) 03/28/2022 71 0.662 -2.3 -0.042 (-6.0%) -0.042 (-6.0%) 02/23/2020 69 0.704 -2.0 *Denotes significance at 95% confidence level, LSC for AP Spine = 0.022 g/cm2, LSC for Total Hip = 0.027 g/cm2 Clinical Information Provided by Patient: Has used the following medications: Calcium Patient maximum height was 63.5 Menopause Age: 53 No regular weight bearing exercise Drinks caffeinated beverages Onset of menses at age 11 Number of children 5 Impression: The patient has osteoporosis, based on the Right Femoral Neck T-score. The BMD for the Total Hip(Right) decreased, changing by -6.0% since the last DXA exam. Discussion: INCREASED RISK OF FRACTURE. BONE DENSITY IS UNDESIRABLY LOW AT ONE OR MORE SKELETAL SITES, CONSISTENT WITH POSTMENOPAUSAL OSTEOPOROSIS. This patient's lowest T-score meets the World Health Organization's (WHO) criteria for osteoporosis at one or more sites (T-score -2.5 or below). In untreated patients, the risk of osteoporotic fracture increases approximately two-fold for each 1.0 SD decrease in T-score. Low bone density is not the only risk factor for fracture; also conside
== END 2022-03-28 08:55 | disposition home or self-care (01) ==
PROVIDERS: PCP Internal Medicine; Visit Provider Obstetrics & Gynecology Gynecology
DX: Z78.0 Asymptomatic menopausal state (principal); M85.852 Other specified disorders of bone density and structure, left thigh; M85.851 Other specified disorders of bone density and structure, right thigh; M81.0 Age-related osteoporosis without current pathological fracture
CPT/HCPCS: 77080

== ENCOUNTER 2022-04-02 13:44 | Outpatient (CLI) | payer MEDICARE, SELFPAY ==
[2022-04-02 14:40] LABS: Vitamin D 25 Hydroxy 62.7 ng/mL
== END 2022-04-02 13:45 | disposition home or self-care (01) ==
LOC: ANHLAB 13:46
PROVIDERS: PCP Internal Medicine; Visit Provider Obstetrics & Gynecology Gynecology
DX: E55.9 Vitamin D deficiency, unspecified (principal)
CPT/HCPCS: 36415; 82306

== ENCOUNTER 2022-04-09 16:21 | Outpatient (CLI) | payer MEDICARE, SELFPAY ==
--- NOTE | ~2022-04-09 | MM_ITS ---
EXAMINATION: MM screening veronica BI w alejandrina HISTORY: Screening mammogram TECHNIQUE: Craniocaudal and mediolateral oblique 3-D tomosynthesis images were obtained and synthetic 2-D images were generated. CAD analysis was submitted and interpreted. COMPARISON: 04/02/2021, 02/23/2020 bilateral screening mammogram examinations BREAST PARENCHYMAL COMPOSITION: There are scattered areas of fibroglandular density. FINDINGS: Multiple right benign calcified microhematomas. There is no evidence of suspicious mass, ca lcification, or architectural distortion to suggest malignancy in either breast. There has been no barba spicious interval change. IMPRESSION: 1. No mammographic evidence of malignancy. 2. Recommend routine screening mammography in one year. BI-RADS Category 2: Benign finding(s). Reviewed, dictated and finalized at location A.
== END 2022-04-09 16:22 | disposition home or self-care (01) ==
LOC: ANHIMG 16:27
PROVIDERS: PCP Internal Medicine; Visit Provider Obstetrics & Gynecology Gynecology
DX: Z12.31 Encounter for screening mammogram for malignant neoplasm of breast (principal)
CPT/HCPCS: 77063; 77067

== ENCOUNTER 2022-04-14 09:48 | Outpatient (CLI) | payer MEDICARE, SELFPAY ==
[2022-04-14 10:24] LABS: Basophils Absolute Auto 0.1 K/mm3 (0.0-0.1); Basophils Percent Auto 0.9 % (0.2-1.2); Eosinophils Absolute Auto 0.2 K/mm3 (0-0.3); Eosinophils Percent Auto 1.9 % (0-4.4); Hematocrit 36.9 % (37.0-47.0); Hemoglobin 12.1 g/dL (12.0-15.0); Immature Granulocyte Absolute 0.03 K/mm3 (0.00-0.031); Immature Granulocyte Percent A 0.3 % (0-0.5); Lymphocytes Absolute Auto 2.82 K/mm3 (0.9-3.2); Mean Corpuscular HGB Conc 32.8 g/dl (32-36); Mean Corpuscular Volume 97.6 fl (80-100); Mean Platelet Volume 10.1 fl (7.4-10.4); Monocytes Absolute Auto 0.8 K/mm3 (0.1-0.6); Neutrophils Absolute Auto 4.9 K/mm3 (1.3-6.7); Neutrophils Percent Auto 55.9 % (45.5-73.1); Platelet Count Result 211 k/mm3 (150-375); Red Blood Count 3.78 M/mm3 (4.2-5.4); Red Cell Distribution Width 14.6 % (11.5-14.5); White Blood Count 8.8 K/mm3 (4.5-10.0)
[2022-04-14 10:37] LABS: Alanine Aminotransferase 21 U/L (6-35); Albumin Level 4.2 g/dL (3.5-5.1); Alkaline Phosphatase 83 U/L (38-126); Anion Gap 9 mmol/L (8-16); Aspartate Amino Transferase 21 U/L (14-36); Bilirubin,Total 0.6 mg/dL (0.2-1.3); Blood Urea Nitrogen 19 mg/dL (7-17); Calcium 8.9 mg/dL (8.4-10.2); Carbon Dioxide 25 mmol/L (22-30); Chloride 106 mmol/L (98-107); Cholesterol 141 mg/dL (0-200); Estimated Glomerular Filt Rate 44; Glucose 174 mg/dL (65-110); HDL Direct 39 mg/dL; Phosphorus 3.2 mg/dL (2.5-4.5); Potassium 4.2 mmol/L (3.4-5.0); Sodium 140 mmol/L (137-145); Triglycerides 173 mg/dL (<150)
[2022-04-14 10:50] LABS: LDL Cholesterol Direct 70 mg/dL
[2022-04-14 12:07] LABS: Hemoglobin A1C 6.9 % (<5.7)
[2022-04-14 12:52] LABS: Free T4 Free Thyroxine 0.91 ng/mL (0.78-2.19); Vitamin D 25 Hydroxy 66.8 ng/mL
== END 2022-04-14 09:49 | disposition home or self-care (01) ==
PROVIDERS: PCP Internal Medicine; Visit Provider Nurse Practitioner
DX: I12.9 Hypertensive chronic kidney disease with stage 1 through stage 4 chronic kidney disease, or unspecified chronic kidney disease (principal); N18.30 Chronic kidney disease, stage 3 unspecified; E11.22 Type 2 diabetes mellitus with diabetic chronic kidney disease; E55.9 Vitamin D deficiency, unspecified; R05.9 Cough, unspecified; Z00.00 Encounter for general adult medical examination without abnormal findings; E27.9 Disorder of adrenal gland, unspecified; K21.9 Gastro-esophageal reflux disease without esophagitis; R80.9 Proteinuria, unspecified; D51.9 Vitamin B12 deficiency anemia, unspecified; E03.9 Hypothyroidism, unspecified; E04.9 Nontoxic goiter, unspecified; F02.80 Dementia in other diseases classified elsewhere, unspecified severity, without behavioral disturbance, psychotic disturbance, mood disturbance, and anxiety; E78.5 Hyperlipidemia, unspecified; D72.829 Elevated white blood cell count, unspecified
CPT/HCPCS: 36415; 80053; 80061; 80069; 82306; 83036; 84439; 84443; 85025

== ENCOUNTER 2023-07-02 14:54 | Outpatient (CLI) | payer MEDICARE, SELFPAY ==
--- NOTE | ~2023-07-02 | MM_ITS ---
EXAMINATION: MM screening veronica BI w alejandrina HISTORY: Screening mammogram TECHNIQUE: Craniocaudal and mediolateral oblique 3-D tomosynthesis images were obtained and synthetic 2-D images were generated. CAD analysis was submitted and interpreted. COMPARISON: 04/09/2022, 04/02/2021, 02/23/2020 bilateral screening mammogram examinations BREAST PARENCHYMAL COMPOSITION: There are scattered areas of fibroglandular density. FINDINGS: Multiple right benign calcified microhematomas are again noted. There is no evidence of rishabh picious mass, calcification, or architectural distortion to suggest malignancy in either breast. Ther e has been no suspicious interval change. IMPRESSION: 1. No mammographic evidence of malignancy. 2. Recommend routine screening mammography in one year. BI-RADS Category 2: Benign finding(s). Reviewed, dictated and finalized at location A. NGER MACHINE TENDER
== END 2023-07-02 14:55 | disposition home or self-care (01) ==
PROVIDERS: PCP Internal Medicine; Visit Provider Obstetrics & Gynecology Gynecology
DX: Z12.31 Encounter for screening mammogram for malignant neoplasm of breast (principal)
CPT/HCPCS: 77063; 77067

== ENCOUNTER 2023-11-13 09:38 | Outpatient (CLI) | payer MEDICARE, SELFPAY ==
--- NOTE | ~2023-11-13 | MR_ITS ---
MRI of the brain Clinical History: Cognitive decline Technique: Axial and sagittal T1-weighted images were acquired. These were followed by axial T2-weigh alejandra, diffusion weighted, gradient, and FLAIR images. COMPARISON: 12/28/2019 Findings: There is no acute infarct, intracranial hemorrhage, or mass lesion. There is moderate to se raúl chronic white matter disease, compatible with chronic microvascular ischemic change. Ventricles and subarachnoid spaces are dilated. Orbits are unremarkable. Paranasal sinuses and mastoi d air cells are clear. Major intracranial flow voids appear intact. Sagittal midline structures are intact. IMPRESSION: Moderate to severe chronic microvascular ischemic change and moderate to advanced generalized atrophy . No acute abnormality. Reviewed, dictated and finalized at location . IMPRESSION: Moderate to severe chronic microvascular ischemic change and moderate to advanc ed generalized atrophy. No acute abnormality.
== END 2023-11-13 09:39 | disposition home or self-care (01) ==
LOC: ANHIMG 09:39
PROVIDERS: PCP Internal Medicine; Visit Provider Student in an Organized Health Care Education/Training Program
DX: F03.90 Unspecified dementia, unspecified severity, without behavioral disturbance, psychotic disturbance, mood disturbance, and anxiety (principal)
CPT/HCPCS: 70551

== ENCOUNTER 2023-12-01 14:17 | Inpatient (IN) | payer MEDICARE, SELFPAY ==
[2023-12-01] VITALS (15 sets, daily range): BP systolic 58–133; BP diastolic 37–93; PULSE 56–84; RESP 11–20; TEMP 36.2–36.6; O2SAT 94–100; BMI 37.8
--- NOTE | ~2023-12-01 | US_ITS ---
EXAMINATION: US renal BI DATE: 12/02/2023 09:26 INDICATION: Acute kidney injury. TECHNIQUE: Multiple ultrasound grayscale images of the kidneys were obtained. COMPARISON: CT abdomen pelvis 12/01/2023, 09/18/2020, 11/18/2020 FINDINGS: The right kidney measures 9.5 x 4.5 x 4.4 cm. The left kidney measures 9.1 x 4.4 x 4.7 cm. The kidney s demonstrate normal parenchymal echogenicity. There is a normal dromedary hump of left kidney. There is cortical thinning of the kidneys. There is no hydronephrosis. The bladder is normal. IMPRESSION: 1. Cortical thinning of the kidneys. No hydronephrosis. Reviewed, dictated and finalized at location A.
--- NOTE | ~2023-12-01 | CT_ITS ---
EXAMINATION: CT chest abdomen pelvis wo con DATE: 12/01/2023 15:33 INDICATION: Hypotension (blood pressure 70/50). Weakness, shakiness. TECHNIQUE: Computed tomography (CT) of the chest, abdomen, and pelvis was performed without intraveno us contrast. Automated exposure control and iterative reconstruction technique were employed. Exam do se: 1502.12 mGy-cm total exam DLP. COMPARISON: 11/18/2020 CT abdomen pelvis FINDINGS: CHEST CT: Approximately 4.7 mm irregular peripheral posterior segment right upper lobe opacity (series 4 image 49). If there are no known risk factors for cancer such as smoking, asbestos or radon exposure, consi sam [address] follow-up. If there are risk factors, consider [address] chest follow-up. No pulmonary infiltrate or consolidation. Normal heart size. Prominent coronary artery calcifications. No pericardial or pleural effusion. Thoracic aortic and great vessel calcification. No thoracic aortic aneurysm. No hilar or mediastinal mass lesion or lymphadenopathy. ABDOMEN/PELVIS CT: Stable 2 cm size of the left adrenal mass since 11/18/2020 with attenuation of 7.8 Hounsfield units, co nsistent with adrenal adenoma. Status post cholecystectomy. No bile duct or pancreatic duct dilatation. No hepatic, splenic, pancreatic, right adrenal or renal suspicious space-occupying mass lesions are n oted on this limited noncontrast examination. The urinary bladder, uterus and adnexal areas are unremarkable. There is atherosclerotic calcification of the abdominal aorta but no aneurysm. No intraperitoneal or retroperitoneal or pelvic mass lesion or adenopathy or ascites is detected. No bowel obstruction, bowel wall thickening, pneumatosis or intraperitoneal free air is detected. SKELETAL: No suspicious osteolytic or osteoblastic lesions. Prominent degenerative changes at the acromioclavicular and glenohumeral joints. Osteoarthritic changes at both hip joints. Severe degenerative disc disease at C5-6 and C6-7. Moderately severe degenerative disc disease L4-5 and L5-S1. There is degenerative change of the lumba r apophyseal joints with associated grade 1 anterolisthesis at L4-5. IMPRESSION: No bleed is identified to account for the hypertension 4.7 mm irregular posterior segment right upper lobe opacity, possibly a small focal scar. Consider fo llow-up CT imaging in 6 or 12 months depending on presence or absence of risk factors. Stable left adrenal adenoma since 11/18/2020 Reviewed, dictated and finalized at Location A. Reviewed, dictated and finalized at location B. IMPRESSION: No bleed is identified to account for the hypertension 4.7 mm irregular posterior segment right upper lobe opacity, possibly a small f ocal scar. Consider follow-up CT imaging in 6 or 12 months depending on presenc e or absence of risk factors. Stable left adrenal adenoma since 11/18/2020
--- NOTE | 2023-12-01 14:41 | ECG_ITS ---
SEE SCANNED COPY FOR CONFIRMED REPORT MTDD
[2023-12-01] MEDS: SODIUM CHLORIDE 0.9% IV 1,000 ML 999 ML IV CONT (14:46)
[2023-12-01 14:56] LABS: Basophils Absolute Auto 0.1 K/mm3 (0.0-0.1); Basophils Percent Auto 0.5 % (0.2-1.2); Eosinophils Percent Auto 0.2 % (0-4.4); Hematocrit 36.8 % (37.0-47.0); Immature Granulocyte Absolute 0.06 K/mm3 (0.00-0.031); Immature Granulocyte Percent A 0.5 % (0-0.5); Lymphocytes Absolute Auto 3.56 K/mm3 (0.9-3.2); Lymphocytes Percent Auto 27.1 % (18.3-44.2); Mean Corpuscular HGB Conc 32.6 g/dl (32-36); Mean Corpuscular Hemoglobin 32.4 pg (26-34); Mean Corpuscular Volume 99.5 fl (80-100); Mean Platelet Volume 10.6 fl (7.4-10.4); Monocytes Absolute Auto 1.1 K/mm3 (0.1-0.6); Monocytes Percent Auto 8.4 % (2.6-8.5); Neutrophils Absolute Auto 8.3 K/mm3 (1.3-6.7); Neutrophils Percent Auto 63.3 % (45.5-73.1); Platelet Count Result 243 k/mm3 (150-375); Red Cell Distribution Width 15.4 % (11.5-14.5); White Blood Count 13.2 K/mm3 (4.5-10.0)
[2023-12-01 15:07] LABS: Prothrombin Time 14.1 Seconds (11.1-14.7)
[2023-12-01 15:08] LABS: Partial Thromboplastin Time 26.4 Seconds (22.3-36.8)
[2023-12-01 15:09] LABS: Lactic Acid Reflex 3.2 mmol/L (0.7-2.0)
[2023-12-01 15:10] LABS: Alanine Aminotransferase 24 U/L (6-35); Albumin Level 4.4 g/dL (3.5-5.1); Alkaline Phosphatase 68 U/L (38-126); Anion Gap 11 mmol/L (4-12); Aspartate Amino Transferase 25 U/L (14-36); Bilirubin,Total 0.8 mg/dL (0.2-1.3); Blood Urea Nitrogen 45 mg/dL (7-17); Calcium 9.6 mg/dL (8.4-10.2); Carbon Dioxide 19 mmol/L (22-30); Chloride 102 mmol/L (98-107); Estimated CRCL calculation 18 ml/min; Estimated Glomerular Filt Rate 19; Glucose 219 mg/dL (65-110); Potassium 5.4 mmol/L (3.4-5.0); Sodium 132 mmol/L (137-145)
[2023-12-01 15:13] LABS: Appearance Urine Cloudy (Clear); Bacteria Urine 4+ /hpf; Bilirubin Urine Negative (Negative); Blood Urine Trace (Negative); Color Urine Yellow (Yellow); Glucose Urine UA Negative (Negative); Ketones Urine Negative (Negative); Leukocyte Esterase Ur 3+ LEU/UL (Negative); Nitrate Urine Positive (Negative); Non Pathogenic Casts 0-2; Protein Urine Negative (Negative); RBC Urine 0-2 /hpf (0-2); Specific Grav Ur 1.008 (1.001-1.035); Squamous Epithelial Cell Urine None Seen /hpf (Few); Urobilinogen Urine 0.2 mg/dL (<2.0); WBC Urine >100 /hpf (0-3)
[2023-12-01 15:14] LABS: Add Urine Microscopic? YES
--- NOTE | 2023-12-01 15:14 | ED.GENADULT ---
HPI - General Adult General Chief complaint: Weakness Stated complaint: 70/40 BP Time Seen by Provider: 12/01/23 14:57 History of Present Illness HPI narrative: this is a 73-year-old female with severe dementia presenting for low blood pressures. She was seen in her primary care office today and had a blood pressure of 70/40. She is then directed to come to the ED. The patient is A&O x1 which is her baseline. She has no complaints and cannot contribute meaningfully to the interview. Her family and caretakers are at bedside. They state that for the last day the patient has been complaining of abdominal pain but they cannot get any more specifics. She has also said that she felt unwell. They note that she has had diarrhea on and off for the last month. No other complaints. Discuss goals of care with the family (Yeny Gilman) and the patient has been made DNR/DNI/medications okay. Related Data Home Medications Medication Instructions Recorded Confirmed allopurinol 300 mg tablet 300 mg PO DAILY 02/03/20 04/20/23 aspirin 81 mg tablet,delayed 81 mg PO DAILY 02/03/20 04/20/23 release (Kranthi Low Dose Aspirin) atorvastatin 20 mg tablet 20 mg PO DAILY 02/03/20 04/20/23 cholecalciferol (vitamin D3) 50 50 mcg PO DAILY 02/03/20 04/20/23 mcg (2,000 unit) capsule donepezil 10 mg tablet 10 mg PO HS 02/03/20 04/20/23 lisinopril 10 mg tablet 10 mg PO DAILY 02/03/20 04/20/23 omeprazole 40 mg capsule,delayed 40 mg PO DAILY 02/03/20 04/20/23 release vitamin B complex (B 1 tablet PO DAILY 02/03/20 04/20/23 Complex-Vitamin B12 tablet) ascorbic acid (vitamin C) 500 mg 500 mg PO DAILY 11/18/20 04/20/23 tablet ibandronate 150 mg tablet 150 mg PO MONTHLY 04/20/23 04/20/23 levothyroxine 125 mcg capsule 125 mcg PO DAILY 04/20/23 04/20/23 pioglitazone 30 mg tablet 30 mg PO DAILY 04/20/23 04/20/23 Allergies Allergy/AdvReac Type Severity Reaction Status Date / Time quinapril AdvReac Confusion Verified 10/27/23 15:29 [facility] Past Medical History Medical History Dementia Diabetes GERD (gastroesophageal reflux disease) Hyperlipidemia Hypertension Hypothyroid Osteoporosis Social History Social History Smoking status: Never smoker Alcohol intake: never Substance use: never Substance use type: does not use Lack of Transportation: No Lack of Food: Never True Current Housing: I Have Housing Concerned About Future Housing: No Difficulty Paying Gas/Electric Bills: No Difficulty Paying for Meds: No Currently Unemployed: No Education: High School Diploma/GED Difficulty w/ Childcare or Family Care: No Gender identity (if verbalized by the patient): Female Exam Narrative: APPEARANCE: No apparent distress. Head: atraumatic. EYES: EOMI, NOSE: Atraumatic NECK: Trachea midline RESPIRATORY: No increased rate of breathing clear to auscultation CARDIOVASCULAR: RRR, no peripheral edema ABDOMINAL: obese, nontendertender no guarding or MUSCULOSKELETAl: No obvious deformities NEURO: Alert. Moving 4/4 extremities SKIN:: intertrigo of the pannus PSYCHIATRIC: Normal affect Course Vital Signs Vital signs: Vital Signs Temperature 97.2 F L 12/01/23 14:22 Pulse Rate 84 12/01/23 14:22 Respiratory Rate 20 12/01/23 14:22 Blood Pressure 58/37 L 12/01/23 14:22 Pulse Oximetry 94 12/01/23 14:22 Temperature 97.2 F L 12/01/23 14:22 Pulse Rate 62 12/01/23 16:31 Respiratory Rate 18 12/01/23 16:16 Blood Pressure 99/57 L 12/01/23 16:16 Pulse Oximetry 100 12/01/23 16:16 Medical Decision Making [facility] Narrative Medical decision making narrative: -Course: 73-year-old woman with dementia presenting for low blood pressures. Full sepsis workup ordered. Patient found to have a urinary tract infection. patient given 30 cc/kilogram bolus ceftriaxone. Potassium is elevated at
[2023-12-01 15:50] LABS: Glucose Point of Care 169 mg/dl (65-105)
[2023-12-01] MEDS: INSULIN HUMAN REGULAR (*BKC) 100 UNITS/ML 10 UNITS IV PUSH (16:20)
[2023-12-01] MEDS: DEXTROSE 50% 25 GM/50 ML SYRINGE IV PUSH (16:20)
[2023-12-01] MEDS: SODIUM ZIRCONIUM CYCLOSILICATE 10 GM POWD.PACK PO (16:20)
[2023-12-01] MEDS: SODIUM CHLORIDE 0.9% IV 3,000 ML 999 ML IV CONT (16:20)
--- NOTE | 2023-12-01 16:59 | PCCCNOTE ---
CC called to the ED to help pt fill out DNR/DNI papers. Pt is alert, but is not oriented. Pt has three daughters at bedside, that are her next of kin, but no one was appointed as POA. I informed them, they can still make decisions, based on being next of kin, but the legal paperwork can not be done, due to their mother not being oriented.
[2023-12-01 17:33] LABS: Influenza A QL RT-PCR Negative (Negative); Influenza B QL RT-PCR Negative (Negative); RSV RNA, RT-PCR Negative (Negative); SARS-CoV-2 RNA PCR Negative (Negative)
[2023-12-01 17:53] LABS: Reflex Lactic Acid Yes or No Add Lactic
[2023-12-01 18:48] LABS: Lactic Acid 1.2 mmol/L (0.7-2.0)
[2023-12-01 18:49] LABS: Anion Gap 6 mmol/L (4-12); Blood Urea Nitrogen 42 mg/dL (7-17); Calcium 8.6 mg/dL (8.4-10.2); Carbon Dioxide 20 mmol/L (22-30); Chloride 109 mmol/L (98-107); Estimated CRCL calculation 21 ml/min; Estimated Glomerular Filt Rate 22; Glucose 111 mg/dL (65-110); Sodium 135 mmol/L (137-145)
--- NOTE | 2023-12-01 18:56 | ADMGEN ---
This patient, Gali Gilman, was admitted to IMU Room 205-01 @1850. pt alert to self only. monitor SR 60's; BP 125/41 Patient/family oriented to hospital policies and general routines including ID bracelet, bed and alarms, visiting hours, pain management, procedures, bathroom and other care routines, personal items, smoking policy, room service/diet, and visiting hours. Information on how to activate the Rapid Response Team has been discussed. Patient/Family are encouraged to report perceived risks to care and to ask questions if they do not understand what they are told or what they should do.
[2023-12-01] MEDS: LACTATED RINGERS 1,000 ML 125 ML IV CONT (20:20)
[2023-12-01 21:44] LABS: Free T4 Free Thyroxine Reflex 0.71 ng/dL (0.78-2.19)
--- NOTE | 2023-12-01 22:29 | PM.IMHP ---
H&P: HPI History of Present Illness Date/Time: 12/01/23 22:30 Chief Complaint: Low blood pressure. Narrative: This is a 73-year-old female with dementia, hypertension, hyperlipidemia, hypothyroidism, gastroesophageal reflux disease, and type 2 diabetes mellitus who presented to the emergency department from her doctor's office for evaluation of low blood pressure. She is not a reliable historian and majority of the following is obtained via a review of her electronic medical records as well as information provided by her daughter. She had routine appointment with her doctor today and was found have a blood pressure of 70/40 and was referred to the ED. Daughter states that she is seemed a bit more weak and wobbly the last couple of days and the patient had mentioned vague abdominal discomfort but did not elaborate. It sounds as though she has been eating and drinking as per usual. It is not unusual for her to have loose stools off and on and that is unchanged. She has not had a fever to her knowledge and she denies cold and flu symptoms, chest pain, shortness of breath, cough, vomiting, current abdominal pain, diarrhea, and dysuria. In the ED: Blood pressure was 58/37 but has responded in normalized with IV fluids. He has been afebrile since arrival. Labs were significant for WBC count 13.2, hemoglobin 12.0, sodium 132 potassium 5.4, BUN 45, creatinine 2.50, glucose 219, lactic acid 3.2, TSH 7.790, free T4 0.71. Urine was positive for nitrates, leukocyte esterase, bacteria, and many WBC. CT of the chest, abdomen, and pelvis did not show any acute findings. In addition to IV fluids she received a g of ceftriaxone for the UTI and appropriate treatment for the hyperkalemia and she is being admitted in this setting for further treatment. Review of Systems Review of Systems: Review of systems is difficult to obtain accurately given her underlying dementia. [facility] Past Medical History Medical History (Updated 12/01/23 @ 22:36 by Libby Garcia PA-C) Dementia Hyperlipidemia Hypertension Hypothyroidism Osteoporosis Type 2 diabetes mellitus Surgical History Surgical History (Updated 12/01/23 @ 22:34 by Libby Garcia PA-C) History of bilateral knee replacement History of cataract extraction History of cholecystectomy Family History Family History (Updated 12/01/23 @ 22:35 by Libby Garcia PA-C) Other Family history unknown Social History Social History (Updated 12/01/23 @ 22:35 by Libby Garcia PA-C) Social History: Healthcare power of professor of theology: Yeny Gilman, daughter. Code status: Do not resuscitate. Smoking status: Never smoker Alcohol intake: never Substance use: never Substance use type: does not use Lack of Transportation: No Lack of Food: Never True Current Housing: I Have Housing Concerned About Future Housing: No Difficulty Paying Gas/Electric Bills: No Difficulty Paying for Meds: No Currently Unemployed: No Education: High School Diploma/GED Difficulty w/ Childcare or Family Care: No Spiritual care concerns: No Meds Home Medications and Allergies Home Medications Medication Instructions Recorded Confirmed Type allopurinol 300 mg tablet 300 mg PO DAILY 02/03/20 12/01/23 History aspirin 81 mg tablet,delayed 81 mg PO DAILY 02/03/20 12/01/23 History release (Kranthi Low Dose Aspirin) atorvastatin 20 mg tablet 20 mg PO DAILY 02/03/20 12/01/23 History cholecalciferol (vitamin D3) 50 50 mcg PO DAILY 02/03/20 12/01/23 History mcg (2,000 unit) capsule donepezil 10 mg tablet 10 mg PO HS 02/03/20 12/01/23 History lisinopril 10 mg tablet 10 mg PO DAILY 02/03/20 12/01/23 History vitamin B complex (B 1 tablet PO DAILY 02/03/20 12/01/23 History Complex-Vitamin B12 tablet) ascorbic acid (vitamin C) 500 mg 500 mg PO DAILY 11/18/20 12/01/23 History tablet ibandronate 150 mg tablet 150 mg PO MONTHLY 04/20/23 12/01/23 History levothyroxine 125 mcg capsule 12
[2023-12-01] MEDS: DONEPEZIL HCL 10 MG TABLET PO (23:39)
[2023-12-01] MEDS: HEPARIN SODIUM 5,000 UNITS/ML VIAL 5000 UNITS SUB-Q (23:40)
[2023-12-01] MEDS: MEMANTINE 10 MG TABLET PO (23:40)
[2023-12-01 23:52] LABS: Glucose Point of Care 128 mg/dl (65-105)
[2023-12-02] VITALS (9 sets, daily range): BP systolic 111–142; BP diastolic 52–59; PULSE 58–71; RESP 14–20; TEMP 36.1–36.5; O2SAT 96–100
[2023-12-02 04:36] LABS: Hematocrit 32.6 % (37.0-47.0); Hemoglobin 10.5 g/dL (12.0-15.0); Mean Corpuscular HGB Conc 32.2 g/dl (32-36); Mean Corpuscular Hemoglobin 32.3 pg (26-34); Mean Corpuscular Volume 100.3 fl (80-100); Mean Platelet Volume 10.1 fl (7.4-10.4); Platelet Count Result 178 k/mm3 (150-375); Red Blood Count 3.25 M/mm3 (4.2-5.4); White Blood Count 9.6 K/mm3 (4.5-10.0)
[2023-12-02 04:49] LABS: Anion Gap 7 mmol/L (4-12); Blood Urea Nitrogen 39 mg/dL (7-17); Calcium 8.6 mg/dL (8.4-10.2); Carbon Dioxide 20 mmol/L (22-30); Chloride 109 mmol/L (98-107); Creatine Kinase 55 U/L (30-135); Estimated CRCL calculation 23 ml/min; Estimated Glomerular Filt Rate 23; Glucose 93 mg/dL (65-110); Magnesium 1.9 mg/dL (1.6-2.3); Potassium 4.4 mmol/L (3.4-5.0); Sodium 136 mmol/L (137-145)
[2023-12-02] MEDS: LEVOTHYROXINE SODIUM 125 MCG TABLET PO (05:58)
[2023-12-02 09:19] LABS: Glucose Point of Care 137 mg/dl (65-105)
[2023-12-02] MEDS: CHOLECALCIFEROL 1,000 UNITS TABLET 2000 UNITS PO (09:45)
[2023-12-02] MEDS: VITAMIN B COMPLEX CAPSULE 1 CAP PO (09:45)
[2023-12-02] MEDS: ASPIRIN 81 MG ENTERIC TABLET PO (09:45)
[2023-12-02] MEDS: allopurinoL 300 MG TABLET PO (09:45)
[2023-12-02] MEDS: FAMOTIDINE 20 MG TABLET 40 MG PO (09:45)
[2023-12-02] MEDS: ASCORBIC ACID 500 MG TABLET PO (09:45)
[2023-12-02] MEDS: PIOGLITAZONE HCL 30 MG TABLET PO (09:46)
[2023-12-02] MEDS: MEMANTINE 10 MG TABLET PO ×2 (09:46→16:26)
[2023-12-02] MEDS: ATORVASTATIN 20 MG TABLET PO (09:46)
[2023-12-02] MEDS: HEPARIN SODIUM 5,000 UNITS/ML VIAL 5000 UNITS SUB-Q ×2 (09:46→21:17)
[2023-12-02 12:33] LABS: Glucose Point of Care 189 mg/dl (65-105)
--- NOTE | 2023-12-02 15:04 | PC.NURSE ---
This patient, Gali Gilman, was transferred to [facility] on 12/02/23 at 1449. Personal belongings sent with patient. Report given to Acacia. Appropriate documentation sent with patient.
--- NOTE | 2023-12-02 16:28 | PM.IMPN ---
Progress Note: A&P Assessment and Plan (1) Sepsis: Code(s): A41.9 - Sepsis, unspecified organism Status: Acute (2) Urinary tract infection: Code(s): N39.0 - Urinary tract infection, site not specified Status: Acute (3) Acute kidney injury: Code(s): N17.9 - Acute kidney failure, unspecified Status: Acute (4) Hyperkalemia: Code(s): E87.5 - Hyperkalemia Status: Acute (5) Type 2 diabetes mellitus: Code(s): E11.9 - Type 2 diabetes mellitus without complications Status: Acute (6) Hypothyroidism: Code(s): E03.9 - Hypothyroidism, unspecified Status: Acute (7) Dementia: Code(s): F03.90 - Unspecified dementia, unspecified severity, without behavioral disturbance, psychotic disturbance, mood disturbance, and anxiety Status: Acute Plan The patient presented to the emergency department for evaluation after she was found to be hypotensive at her doctor's office as detailed in HPI. Labs, imaging, EKG, and all reports were personally reviewed. She meets sepsis criteria on admission with hypotension, leukocytosis, lactic acidosis, and acute kidney injury in the setting of urinary tract infection. Blood cultures have been obtained. Lactic acid level has improved with 30 milligram/kilogram IV fluid bolus. Continue ceftriaxone, pending urine culture. All medications will be renally dosed and nephrotoxic agents will be avoided. Renal ultrasound ordered for a.m.. Potassium has improved with appropriate treatment and will be monitored. Initiate sliding scale insulin, Accu-Cheks, and hypoglycemic protocol. Check hemoglobin A1c. Her medications will be reviewed and resumed as appropriate. The patient's medical management will be taken over by the hospitalist team in a.m. Assessment and plan (1) Sepsis:? Acute (2) Urinary tract infection: (3) Acute kidney injury: Rx: IVFs; PT/OT eval and Rx Monitor renal function; Avoid nephrotoxins Ceftraixone (4) Hyperkalemia: Improved (5) Type 2 diabetes mellitus: (6) Hypothyroidism: (7) Dementia: Time Spent With Patient Time with patient: 25 - 35 minutes Subjective Date/time seen: 12/02/23 16:28 Interval history: 12/02/23: Seen and examined; being managed for symptomatic hypotension, DAIJA, UTI and sepsis Daughters are at bedside, questions answered. Review of Systems Review of Systems: Review of systems is difficult to obtain accurately given her underlying dementia. Constitutional: Constitutional: Denies body ache(s), Denies difficulty sleeping, Reports fatigue, Denies lethargy and Denies night sweats ENT: Denies dysphagia, Denies epistaxis and Denies nasal congestion Respiratory: Respiratory: Denies dyspnea and Denies dyspnea on exertion Gastrointestinal: Gastrointestinal: Denies hematochezia, Denies constipation and Denies heartburn Genitourinary: Genitourinary: Denies hot flashes, Denies flank pain, Denies urinary incontinence and Denies urinary urgency Musculoskeletal: Musculoskeletal: Denies as per HPI and Denies joint swelling Integumentary/Breasts: Skin/Breast: Denies dry skin, Denies pruritus and Denies erythema Psychiatric: Psychiatric: Denies no additional psychiatric complaints, Denies anxiety, Denies behavioral changes and Denies confusion Exam Narrative: General: Nontoxic-appearing female in the semi-Henson position in bed in no acute distress. Weight: 97 kg. BMI: 37.9. HEENT: PERRL, EOMI. Sclera anicteric. Tacky mucous membranes. Oropharynx is crowded. Neck: Supple. Exam limited due to neck circumference. No obvious JVD. Respiratory: Lungs are clear to auscultation bilaterally. Cardiovascular: Regular rate and rhythm with S1-S2. Gastrointestinal: Abdomen is soft, obese, nontender, and nondistended with positive bowel sounds. Skin: Warm and dry. Generalized pallor Extremities: No cyanosis or clubbing. Trace kyrie ankle edema bilaterally. Radial and pedal pulses
[2023-12-02 16:37] LABS: Glucose Point of Care 131 mg/dl (65-105)
[2023-12-02] MEDS: SODIUM CHLORIDE 0.9% IV 1,000 ML 75 ML IV CONT (17:12)
[2023-12-02 20:20] LABS: Glucose Point of Care 159 mg/dl (65-105)
[2023-12-02] MEDS: DONEPEZIL HCL 10 MG TABLET PO (21:17)
[2023-12-03] MEDS: LEVOTHYROXINE SODIUM 125 MCG TABLET PO (05:47)
[2023-12-03 06:00] VITALS: PULSE 63; RESP 12; TEMP 36.2; O2SAT 100
[2023-12-03 06:12] LABS: Basophils Absolute Auto 0.1 K/mm3 (0.0-0.1); Eosinophils Absolute Auto 0.1 K/mm3 (0-0.3); Eosinophils Percent Auto 1.6 % (0-4.4); Hematocrit 32.8 % (37.0-47.0); Hemoglobin 10.4 g/dL (12.0-15.0); Immature Granulocyte Absolute 0.04 K/mm3 (0.00-0.031); Immature Granulocyte Percent A 0.5 % (0-0.5); Lymphocytes Absolute Auto 2.88 K/mm3 (0.9-3.2); Lymphocytes Percent Auto 34.8 % (18.3-44.2); Mean Corpuscular HGB Conc 31.7 g/dl (32-36); Mean Corpuscular Hemoglobin 32.2 pg (26-34); Mean Corpuscular Volume 101.5 fl (80-100); Mean Platelet Volume 10.6 fl (7.4-10.4); Monocytes Absolute Auto 0.8 K/mm3 (0.1-0.6); Neutrophils Absolute Auto 4.3 K/mm3 (1.3-6.7); Neutrophils Percent Auto 52.1 % (45.5-73.1); Platelet Count Result 151 k/mm3 (150-375); Red Blood Count 3.23 M/mm3 (4.2-5.4); Red Cell Distribution Width 15.1 % (11.5-14.5); White Blood Count 8.3 K/mm3 (4.5-10.0)
[2023-12-03 06:30] LABS: Alanine Aminotransferase 20 U/L (6-35); Albumin Level 3.4 g/dL (3.5-5.1); Alkaline Phosphatase 70 U/L (38-126); Anion Gap 4 mmol/L (4-12); Aspartate Amino Transferase 22 U/L (14-36); Bilirubin,Total 0.5 mg/dL (0.2-1.3); Blood Urea Nitrogen 31 mg/dL (7-17); Calcium 8.8 mg/dL (8.4-10.2); Carbon Dioxide 25 mmol/L (22-30); Chloride 110 mmol/L (98-107); Estimated CRCL calculation 29 ml/min; Estimated Glomerular Filt Rate 27; Glucose 86 mg/dL (65-110); Potassium 4.6 mmol/L (3.4-5.0); Sodium 139 mmol/L (137-145)
[2023-12-03 07:26] LABS: Glucose Point of Care 88 mg/dl (65-105)
[2023-12-03] MEDS: FAMOTIDINE 20 MG TABLET 40 MG PO (09:06)
[2023-12-03] MEDS: ASCORBIC ACID 500 MG TABLET PO (09:06)
[2023-12-03] MEDS: MEMANTINE 10 MG TABLET PO (09:06)
[2023-12-03] MEDS: PIOGLITAZONE HCL 30 MG TABLET PO (09:06)
[2023-12-03] MEDS: VITAMIN B COMPLEX CAPSULE 1 CAP PO (09:06)
[2023-12-03] MEDS: CHOLECALCIFEROL 1,000 UNITS TABLET 2000 UNITS PO (09:06)
[2023-12-03] MEDS: allopurinoL 300 MG TABLET PO (09:06)
[2023-12-03] MEDS: ATORVASTATIN 20 MG TABLET PO (09:06)
[2023-12-03] MEDS: ASPIRIN 81 MG ENTERIC TABLET PO (09:06)
[2023-12-03 11:24] LABS: Glucose Point of Care 143 mg/dl (65-105)
--- NOTE | 2023-12-03 12:21 | PM.DS ---
DS: Admitting Diagnosis Discharge Date 12/03/23 Admitting Diagnosis 1. Hypotension 2. UTI DS: Discharge Diagnosis Discharge Diagnosis (1) Sepsis: Code(s): A41.9 - Sepsis, unspecified organism Status: Acute (2) Urinary tract infection: Code(s): N39.0 - Urinary tract infection, site not specified Status: Acute (3) Acute kidney injury: Code(s): N17.9 - Acute kidney failure, unspecified Status: Acute (4) Hyperkalemia: Code(s): E87.5 - Hyperkalemia Status: Acute (5) Type 2 diabetes mellitus: Code(s): E11.9 - Type 2 diabetes mellitus without complications Status: Acute (6) Hypothyroidism: Code(s): E03.9 - Hypothyroidism, unspecified Status: Acute (7) Dementia: Code(s): F03.90 - Unspecified dementia, unspecified severity, without behavioral disturbance, psychotic disturbance, mood disturbance, and anxiety Status: Acute Plan The patient presented to the emergency department for evaluation after she was found to be hypotensive at her doctor's office as detailed in HPI. Labs, imaging, EKG, and all reports were personally reviewed. She meets sepsis criteria on admission with hypotension, leukocytosis, lactic acidosis, and acute kidney injury in the setting of urinary tract infection. Blood cultures have been obtained. Lactic acid level has improved with 30 milligram/kilogram IV fluid bolus. Continue ceftriaxone, pending urine culture. All medications will be renally dosed and nephrotoxic agents will be avoided. Renal ultrasound ordered for a.m.. Potassium has improved with appropriate treatment and will be monitored. Initiate sliding scale insulin, Accu-Cheks, and hypoglycemic protocol. Check hemoglobin A1c. Her medications will be reviewed and resumed as appropriate. The patient's medical management will be taken over by the hospitalist team in a.m. Assessment and plan (1) Sepsis:? Acute (2) Urinary tract infection: (3) Acute kidney injury: Rx: IVFs; PT/OT eval and Rx Monitor renal function; Avoid nephrotoxins Ceftraixone (4) Hyperkalemia: Improved (5) Type 2 diabetes mellitus: (6) Hypothyroidism: (7) Dementia: DS: Summary Hospital Course Reason for hospitalization: 1. Hypotension 2. UTI Hospital Course: This is a 73-year-old female with dementia, hypertension, hyperlipidemia, hypothyroidism, gastroesophageal reflux disease, and type 2 diabetes mellitus who presented to the emergency department from her doctor's office for evaluation of low blood pressure. She is not a reliable historian and majority of the following is obtained via a review of her electronic medical records as well as information provided by her daughter. She had routine appointment with her doctor today and was found have a blood pressure of 70/40 and was referred to the ED. Daughter states that she is seemed a bit more weak and wobbly the last couple of days and the patient had mentioned vague abdominal discomfort but did not elaborate. It sounds as though she has been eating and drinking as per usual. It is not unusual for her to have loose stools off and on and that is unchanged. She has not had a fever to her knowledge and she denies cold and flu symptoms, chest pain, shortness of breath, cough, vomiting, current abdominal pain, diarrhea, and dysuria. In the ED: Significant findings: Blood pressure was 58/37 but has responded in normalized with IV fluids. He has been afebrile since arrival. WBC count 13.2, hemoglobin 12.0, sodium 132 potassium 5.4, BUN 45, creatinine 2.50, glucose 219, lactic acid 3.2, TSH 7.790, free T4 0.71. Urinalysis was positive for nitrates, leukocyte esterase, bacteria, and many WBC. CT of the chest, abdomen, and pelvis did not show any acute findings. Procedures performed. None Treatment rendered In addition to IV fluids she received a g of ceftriaxone for the UTI and appropriate treatment for the hyperkalemia and she is bein
[2023-12-03 14:00] VITALS: BP 104/54; PULSE 57; RESP 18; TEMP 36.1; O2SAT 97
== END 2023-12-03 14:30 | disposition home or self-care (01) | DRG 872 ==
LOC: ANHED 17:34 → ANHIMU 12-02 05:31 → ANH3MEDSUR 12-03 12:21 → ANHIMU 12-04 09:55
PROVIDERS: Physician Assistant; Admitting Provider General Practice; Emergency Provider Emergency Medicine; PCP Internal Medicine; Visit Provider Internal Medicine
DX: A41.9 Sepsis, unspecified organism (principal); N39.0 Urinary tract infection, site not specified; N17.9 Acute kidney failure, unspecified; I10 Essential (primary) hypertension; E87.5 Hyperkalemia; E11.9 Type 2 diabetes mellitus without complications; E78.5 Hyperlipidemia, unspecified; E03.9 Hypothyroidism, unspecified; K21.9 Gastro-esophageal reflux disease without esophagitis; M81.0 Age-related osteoporosis without current pathological fracture; F03.90 Unspecified dementia, unspecified severity, without behavioral disturbance, psychotic disturbance, mood disturbance, and anxiety; Z20.822 Contact with and (suspected) exposure to COVID-19; Z79.82 Long term (current) use of aspirin
CPT/HCPCS: 36415; 71250; 74176; 76775; 80048; 80053; 81001; 82550; 82948; 83036; 83605; 83735; 84439; 84443; 85025; 85027; 85610; 85730; 86850; 86900; 86901; 87040; 87086; 87088; 87637; 93005; 97161; A9270; J0696; J1644; J1815; J7030; J7120

== ENCOUNTER 2023-12-05 17:18 | Emergency (ER) | payer MEDICARE, SELFPAY ==
--- NOTE | ~2023-12-05 | XR_ITS ---
Supine and upright views of the abdomen Clinical history: Constipation Findings: Bowel gas pattern is nonspecific. No evidence for obstruction or free air. Cholecystectomy clips are noted. No abnormal mass lesion or calcification is seen. Degenerative spondylosis of the vikram mbar spine noted. Impression: Nonspecific bowel gas pattern. Reviewed, dictated and finalized at [facility]. Impression: Nonspecific bowel gas pattern.
--- NOTE | ~2023-12-05 | CT_ITS ---
Non-contrast CT scan of the Abdomen and Pelvis Clinical indication: Constipation Technique: 2.5 mm axial scans were obtained through the abdomen and pelvis without intravenous or or al contrast. Dose reduction technique was used on this scan by utilizing automated exposure control a nd iterative reconstruction technique. The dose-length product (DLP) was 1042.88 mGy-cm. COMPARISON: 12/01/2023 and 11/18/2020 Findings: Images through the lung bases reveal no abnormalities. There is no evidence of renal or ureteral calculi. The kidneys and the ureters are nondilated. The liver, spleen, pancreas, gallbladder, and right adrenal gland appear normal. Stable 2 cm left adr enal nodule, presumably benign adenoma. There is no aortic aneurysm. There is no evidence of bowel obstruction. Images through the pelvis were performed. There is no evidence of ascites or lymphadenopathy. Urinary bladder unremarkable. No pelvic mass seen. Impression: No acute abnormality. Stable 2 cm left adrenal nodule, presumably benign adenoma. Reviewed, dictated and finalized at [facility]. Impression: No acute abnormality. Stable 2 cm left adrenal nodule, presumably benign adenoma.
[2023-12-05 17:27] VITALS: BP 144/72; PULSE 95; RESP 18; TEMP 36.3; O2SAT 99
--- NOTE | 2023-12-05 18:37 | ED.GENADULT ---
HPI - General Adult General Chief complaint: Unspecified Stated complaint: Constipation Time Seen by Provider: 12/05/23 18:25 Source: family Limitations: dementia History of Present Illness HPI narrative: Patient is a 73-year-old female presents to the emergency department accompanied by family for constipation. Emesis the patient has not had a bowel movement since Thursday in the of tried a suppository at home without in his status. Patient is not complaining of anything. No vomiting, abdominal pain heard patient was recently admitted to the hospital for sepsis and UTI and was discharged on the . Patient is not on a bowel regimen and man does not have any history of constipation. Related Data Home Medications Medication Instructions Recorded Confirmed allopurinol 300 mg tablet 300 mg PO DAILY 02/03/20 12/01/23 aspirin 81 mg tablet,delayed 81 mg PO DAILY 02/03/20 12/01/23 release (Kranthi Low Dose Aspirin) atorvastatin 20 mg tablet 20 mg PO DAILY 02/03/20 12/01/23 cholecalciferol (vitamin D3) 50 50 mcg PO DAILY 02/03/20 12/01/23 mcg (2,000 unit) capsule donepezil 10 mg tablet 10 mg PO HS 02/03/20 12/01/23 vitamin B complex (B 1 tablet PO DAILY 02/03/20 12/01/23 Complex-Vitamin B12 tablet) ascorbic acid (vitamin C) 500 mg 500 mg PO DAILY 11/18/20 12/01/23 tablet ibandronate 150 mg tablet 150 mg PO MONTHLY 04/20/23 12/01/23 levothyroxine 125 mcg capsule 125 mcg PO DAILY 04/20/23 12/01/23 pioglitazone 30 mg tablet 30 mg PO DAILY 04/20/23 12/01/23 famotidine 40 mg tablet 40 mg PO DAILY 12/01/23 12/01/23 memantine 10 mg tablet 10 mg PO BID 12/01/23 12/01/23 Allergies Allergy/AdvReac Type Severity Reaction Status Date / Time quinapril AdvReac Confusion Verified 10/27/23 15:29 Review of Systems Review of Systems: ROS unobtainable: Yes other (Not willing to answer my questions, history provided by family. ) [facility] Past Medical History Medical History (Updated 12/05/23 @ 21:08 by Yonathan Walter DO) Dementia Hyperlipidemia Hypertension Hypothyroidism Osteoporosis Type 2 diabetes mellitus Surgical History Surgical History (Updated 12/01/23 @ 22:34 by Libby Garcia PA-C) History of bilateral knee replacement History of cataract extraction History of cholecystectomy Family History Family History (Updated 12/01/23 @ 22:35 by Libby Garcia PA-C) Other Family history unknown Social History Social History (Updated 12/01/23 @ 22:35 by Libby Garcia PA-C) Social History: Healthcare power of consumer attorney: Yeny Gilman, daughter. Code status: Do not resuscitate. Smoking status: Never smoker Alcohol intake: never Substance use: never Substance use type: does not use Lack of Transportation: No Lack of Food: Never True Current Housing: I Have Housing Concerned About Future Housing: No Difficulty Paying Gas/Electric Bills: No Difficulty Paying for Meds: No Currently Unemployed: No Education: High School Diploma/GED Difficulty w/ Childcare or Family Care: No Spiritual care concerns: No Comments At time of signature, I have reviewed and agree with nursing past medical, surgical, social and family history unless otherwise noted. Please see the nursing chart for further information. There is no relevant family history pertinent to the presenting complaint. Exam Narrative: CONST: No acute distress. Well nourished. HENMT: Head is normocephalic and atraumatic. Tacky mucous membranes. EYES: No conjunctival icterus, injection, or pallor. PERRL. NECK: No meningeal signs. RESP: Able to speak in full sentences. Normal respiratory effort. CTAB. CARDIO: Regular rate. Regular rhythm. 2+ DP and radial pulses bilaterally. GI: Nondistended. No tenderness to palpation. Soft. : No CVA tenderness to palpation. SKIN: No rashes or lesions noted on exposed skin. NEURO: Moves all extremities. EXTREM/MSK/BACK: No pedal edema. Course Vital Signs Vital s
[2023-12-05 19:06] LABS: Basophils Absolute Auto 0.1 K/mm3 (0.0-0.1); Basophils Percent Auto 0.8 % (0.2-1.2); Eosinophils Absolute Auto 0.1 K/mm3 (0-0.3); Eosinophils Percent Auto 0.8 % (0-4.4); Hematocrit 33.2 % (37.0-47.0); Immature Granulocyte Absolute 0.04 K/mm3 (0.00-0.031); Immature Granulocyte Percent A 0.4 % (0-0.5); Lymphocytes Absolute Auto 2.66 K/mm3 (0.9-3.2); Lymphocytes Percent Auto 26.9 % (18.3-44.2); Mean Corpuscular HGB Conc 33.1 g/dl (32-36); Mean Corpuscular Hemoglobin 32.9 pg (26-34); Mean Corpuscular Volume 99.4 fl (80-100); Mean Platelet Volume 10.3 fl (7.4-10.4); Monocytes Absolute Auto 1.1 K/mm3 (0.1-0.6); Monocytes Percent Auto 10.6 % (2.6-8.5); Neutrophils Percent Auto 60.5 % (45.5-73.1); Platelet Count Result 160 k/mm3 (150-375); Red Blood Count 3.34 M/mm3 (4.2-5.4); Red Cell Distribution Width 15.7 % (11.5-14.5); White Blood Count 9.9 K/mm3 (4.5-10.0)
[2023-12-05] MEDS: SODIUM CHLORIDE 0.9% IV 500 ML 999 ML IV CONT (19:13)
[2023-12-05] MEDS: polyethylene glycoL 3350 17 GM POWD.PACK PO (19:13)
[2023-12-05 19:16] VITALS: BP 106/78; PULSE 57; RESP 16; O2SAT 98
[2023-12-05 20:07] VITALS: PULSE 73
[2023-12-05 20:24] LABS: Lactic Acid Reflex 1.9 mmol/L (0.7-2.0)
[2023-12-05 20:31] LABS: Alanine Aminotransferase 23 U/L (6-35); Albumin Level 4.4 g/dL (3.5-5.1); Alkaline Phosphatase 83 U/L (38-126); Anion Gap 7 mmol/L (4-12); Aspartate Amino Transferase 32 U/L (14-36); Bilirubin,Total 0.7 mg/dL (0.2-1.3); Blood Urea Nitrogen 33 mg/dL (7-17); Calcium 9.3 mg/dL (8.4-10.2); Carbon Dioxide 25 mmol/L (22-30); Chloride 105 mmol/L (98-107); Estimated CRCL calculation 32 ml/min; Estimated Glomerular Filt Rate 34; Glucose 176 mg/dL (65-110); Potassium 4.7 mmol/L (3.4-5.0); Sodium 137 mmol/L (137-145)
[2023-12-05 21:44] VITALS: BP 100/56; PULSE 87; RESP 16; O2SAT 99
--- NOTE | 2023-12-05 21:45 | PC.NURSE ---
Daughter of patient signed discharge paperwork for patient
[2023-12-05 21:47] LABS: Free T4 Free Thyroxine Reflex 1.15 ng/dL (0.78-2.19)
[2023-12-05 22:30] LABS: Total Triiodothyronine (T3) 1.15 NG/ML (0.97-1.69)
== END 2023-12-05 21:45 | disposition home or self-care (01) ==
PROVIDERS: Emergency Provider Student in an Organized Health Care Education/Training Program; PCP Internal Medicine
DX: K59.00 Constipation, unspecified (principal); F03.90 Unspecified dementia, unspecified severity, without behavioral disturbance, psychotic disturbance, mood disturbance, and anxiety; I10 Essential (primary) hypertension; E78.5 Hyperlipidemia, unspecified; E03.9 Hypothyroidism, unspecified; E11.9 Type 2 diabetes mellitus without complications; M81.0 Age-related osteoporosis without current pathological fracture; Z66 Do not resuscitate; Z96.653 Presence of artificial knee joint, bilateral; Z98.49 Cataract extraction status, unspecified eye; Z90.49 Acquired absence of other specified parts of digestive tract; Z79.82 Long term (current) use of aspirin; Z79.899 Other long term (current) drug therapy; E27.8 Other specified disorders of adrenal gland
CPT/HCPCS: 36415; 74018; 74176; 80053; 83605; 83735; 84439; 84443; 84480; 85025; 99284; J7040

== ENCOUNTER 2024-05-04 23:11 | Emergency (ER) | payer MEDICARE, SELFPAY ==
--- NOTE | ~2024-05-04 | XR_ITS ---
EXAMINATION: XR shoulder LT min 2V DATE: 05/05/2024 01:46 INDICATION: Left shoulder dislocation. TECHNIQUE: 3 views of left shoulder were obtained. COMPARISON: None. FINDINGS: Bone alignment is normal. No fracture. The glenohumeral joint is not well profiled. There i s mild acromioclavicular joint osteoarthritis. IMPRESSION: 1. Mild left acromioclavicular joint osteoarthritis. Reviewed, dictated and finalized at location [facility].
[2024-05-04 23:27] VITALS: BP 147/102; PULSE 93; RESP 15; TEMP 36.6; O2SAT 99
[2024-05-05 00:43] VITALS: BP 145/76; PULSE 81; RESP 18; O2SAT 95
--- NOTE | 2024-05-05 01:18 | ED_ITS ---
HPI - Extremity Problem General Chief complaint: Extremity Problem,Nontraumatic Stated complaint: Cannot lift left arm, no injury, pain Time Seen by Provider: 05/05/24 01:14 History of Present Illness HPI Narrative: Patient is a 73-year-old female who presents to the emergency department this evening due to concern with left shoulder injury. Patient is currently present with her daughters and they state that they were out having fun this evening and dancing and patient was moving her arms and having a great time and then when I got home they noticed that the patient was having a difficult time lifting her left upper extremity. Patient does have equal keno clerk strength but is struggling to a left her left arm at the shoulder joint. Family members deny any falls any trauma or any other injuries. Patient does have a history of dementia and is alert and oriented times 0 at baseline. The majority of the history is obtained from the daughters present at bedside. Related Data Home Medications Medication Instructions Recorded Confirmed allopurinol 300 mg tablet 300 mg PO DAILY 02/03/20 01/15/24 aspirin 81 mg tablet,delayed 81 mg PO DAILY 02/03/20 01/15/24 release (Kranthi Low Dose Aspirin) atorvastatin 20 mg tablet 20 mg PO DAILY 02/03/20 01/15/24 cholecalciferol (vitamin D3) 50 50 mcg PO DAILY 02/03/20 01/15/24 mcg (2,000 unit) capsule donepezil 10 mg tablet 10 mg PO HS 02/03/20 01/15/24 vitamin B complex (B 1 tablet PO DAILY 02/03/20 01/15/24 Complex-Vitamin B12 tablet) ascorbic acid (vitamin C) 500 mg 500 mg PO DAILY 11/18/20 01/15/24 tablet ibandronate 150 mg tablet 150 mg PO MONTHLY 04/20/23 01/15/24 pioglitazone 30 mg tablet 30 mg PO DAILY 04/20/23 01/15/24 famotidine 40 mg tablet 40 mg PO DAILY 12/01/23 01/15/24 memantine 10 mg tablet 10 mg PO BID 12/01/23 01/15/24 finerenone 20 mg tablet (Kerendia) 20 mg PO DAILY 01/15/24 01/15/24 levothyroxine 125 mcg capsule 137 mcg PO DAILY 01/15/24 01/15/24 Allergies Allergy/AdvReac Type Severity Reaction Status Date / Time quinapril AdvReac Confusion Verified 05/05/24 00:45 Review of Systems Review of Systems: All systems are reviewed and are negative unless stated otherwise in the HPI. [facility] Past Medical History Medical History Dementia Hyperlipidemia Hypertension Hypothyroidism Osteoporosis Type 2 diabetes mellitus Surgical History Surgical History History of bilateral knee replacement History of cataract extraction History of cholecystectomy Family History Family History Other Family history unknown Social History Social History Social History: Healthcare power of commercial real estate attorney: Yeny Gilman, daughter. Code status: Do not resuscitate. Smoking status: Never smoker Do You Feel Safe in your Home?: Yes Lack of Transportation: No Lack of Food: Never True Current Housing: I Have Housing Concerned About Future Housing: No Difficulty Paying Gas/Electric Bills: No Difficulty Paying for Meds: No Currently Unemployed: No Education: High School Diploma/GED Difficulty w/ Childcare or Family Care: No Living arrangements: with family Gender identity (if verbalized by the patient): Female Spiritual care concerns: No Exam Narrative: General: Alert, awake, afebrile, in no acute distress. HEENT: PERRL, no rhinorrhea, no post nasal drip, oropharynx clear. Cardiovascular: Regular rate and rhythm, no murmurs, rubs or gallops, no peripheral edema. Respiratory: Clear to auscultation bilaterally, no tachypnea, no wheezing, no rhonchi, no rubs, no respiratory distress. Abdomen: Soft, nontender, nondistended, no rebound, no guarding, no peritoneal signs. Musculoskeletal: Intact and equal bilateral keno clerk strength, intact and full range of motion at the left wrist and elbow joint, patient is unable to lift her left upper extremity at the shoulder joint on her own. Skin: No rashes or petechia, no signs of infection. Neurological: Alert and orientedx0 which is her baseline. No focal deficits, speech is clear and fluent. Course Vital Signs Vital signs: Vital Signs Temperature 98 F 05/04/24 23:27 Pulse Rate 93 05/04/24 23:27 Respiratory Rate 15 05/04/24 23:27 Blood Pressure 147/102 H 05/04/24 23:27 Pulse Oximetry 99 05/04/24 23:27 Oxygen Delivery Room Air 05/04/24 23:27 Temperature 98 F 05/04/24 23:27 Pulse Rate 84 05/05/24 03:07 Respiratory Rate 18 05/05/24 03:07 Blood Pressure 141/56 H 05/05/24 03:07 Pulse Oximetry 96 05/05/24 03:07 Oxygen Delivery Room Air 05/04/24 23:27 MDM - Extremity (Nontraumatic) MDM Narrative Medical decision making narrative: The patient was evaluated by myself in the emergency department. History is obtained from patient who is an independent historian and physical exam was performed. External medical records were reviewed at this time. Imaging studies obtained included left shoulder x-ray which was independently interpreted by me revealing no acute process, which is pending final radiology interpretation. At this time I did inform the daughters of the x-ray results at bedside and that patient might have some rotator cuff injury which would require MRI. I did discuss differentials with daughters including a stroke which is unlikely given that the patient has intact and equal bilateral keno clerk strength and her range of motion is only limited at the left shoulder joint. Comorbidities impacting this visit include history of dementia. I have evaluated and discussed social determinants of health with the patient that could potentially impact subsequent diagnosis and treatment plans. On repeat assessment of the patient, reevaluation revealed that the patient is doing well and is in no acute distress. Patient symptoms have remained stable since she arrived to our emergency department. Repeat vital signs were all reviewed and noted to be stable. Differential diagnosis and treatment plan were discussed with the daughters at bedside who both agree with discussion and after shared medical decision making agree with discharge. All questions were answered to the patient's satisfaction. Patient will follow up with Orthopedics in 3-5 days. Patient was provided with strict return precautions and instructed to return to the emergency department if any new or worsening symptoms develop. The patient was discharged in stable condition. Discharge Plan Discharge Clinical Impression: Shoulder sprain Patient Disposition: Home, Self-Care Condition: Stable Instructions: Antibiotic Form, Shoulder Sprain (ED) Additional Instructions: Please follow-up with the orthopedic doctor you were provided with today as you may need an MRI of your left shoulder for further evaluation of your shoulder joint. Return to the ED if any new or worsening symptoms develop. Prescriptions: No Action levothyroxine 125 mcg capsule 137 mcg PO DAILY Kerendia 20 mg tablet 20 mg PO DAILY pioglitazone 30 mg tablet 30 mg PO DAILY ibandronate 150 mg tablet 150 mg PO MONTHLY Rx Instructions: takes on of every month atorvastatin 20 mg Tablet 20 mg PO DAILY donepezil 10 mg Tablet 10 mg PO HS aspirin [Kranthi Low Dose Aspirin] 81 mg Tablet,Delayed Release (Dr/Ec) 81 mg PO DAILY vitamin B complex [B Complex-Vitamin B12] Tablet 1 tablet PO DAILY allopurinol 300 mg Tablet 300 mg PO DAILY cholecalciferol (vitamin D3) 50 mcg (2,000 unit) Capsule 50 mcg PO DAILY ascorbic acid (vitamin C) 500 mg Tablet 500 mg PO DAILY famotidine 40 mg tablet 40 mg PO DAILY memantine 10 mg tablet 10 mg PO BID Follow-up/Referrals: Danis Palmer MD [Physician] - [facility],Kalen Mitchell MD [Primary Care Provider] - Time of Disposition: 04:08
[2024-05-05 03:07] VITALS: BP 141/56; PULSE 84; RESP 18; O2SAT 96
--- NOTE | 2024-05-05 03:56 | PC.NURSE ---
This RN changed pt linen and diaper at this time.
[2024-05-05 04:21] VITALS: BP 136/47; PULSE 79; RESP 18; O2SAT 98
== END 2024-05-05 04:22 | disposition home or self-care (01) ==
PROVIDERS: Emergency Provider Emergency Medicine; PCP Internal Medicine
DX: S43.402A Unspecified sprain of left shoulder joint, initial encounter (principal); F03.90 Unspecified dementia, unspecified severity, without behavioral disturbance, psychotic disturbance, mood disturbance, and anxiety; I10 Essential (primary) hypertension; E78.5 Hyperlipidemia, unspecified; E11.9 Type 2 diabetes mellitus without complications; E03.9 Hypothyroidism, unspecified; M81.0 Age-related osteoporosis without current pathological fracture; Z66 Do not resuscitate; Z96.653 Presence of artificial knee joint, bilateral; Z98.49 Cataract extraction status, unspecified eye; Z90.49 Acquired absence of other specified parts of digestive tract; Z79.82 Long term (current) use of aspirin; Z79.899 Other long term (current) drug therapy; M19.012 Primary osteoarthritis, left shoulder; X58.XXXA Exposure to other specified factors, initial encounter
CPT/HCPCS: 73030; 99283